=== PATIENT | female | born 1950 | race Caucasian/White ===

== ENCOUNTER 2023-12-28 16:14 | Observation (INO) ==
--- NOTE | 2023-12-28 16:26 | ED Triage Note ---
Date of Service December 28, 2023 Provider in Triage Author: Bhavesh Brown History of Present Illness This patient was briefly evaluated while in triage. An abbreviated physical exam was performed. This patient is a 73-year-old Female who presents to the ED for evaluation of right-sided abdominal pain that started around midmorning today. Patient reports nausea and vomiting. Patient denies any fevers, but does feel chilled. The patient reports that the pain is worse when she lays on her side and bends her hip. Patient is concerned that she has appendicitis. Patient has had a prior history of tummy tuck and bilateral tubal ligation. The patient currently rates her discomfort a 6 out of 10. Physical Exam CONSTITUTIONAL: Healthy and well nourished. HEENT: No scleral icterus or conjunctival injection. RESPIRATORY: Clear to auscultation bilaterally with no wheezing, crackles, rhonchi or stridor. CARDIOVASCULAR: Regular rate and rhythm with no murmurs, rubs or gallops. GASTROINTESTINAL: Bowel sounds present in all quadrants. Examination does show a positive McBurney's point tenderness, otherwise examination was limited in triage. INTEGUMENTARY: No rash or other significant dermatologic conditions noted. HEMATOLOGIC: No ecchymosis or petechiae. PSYCHIATRIC: Positive affect. NEUROLOGIC: No focal neurologic deficits noted. Initial orders for labs and / or imaging were placed and patient was placed in the waiting area until a bed is available. Please see further documentation for the full ED course.
[2023-12-28] MEDS: SODIUM CHLORIDE 0.9% 500 ML IV ONE (16:34)
[2023-12-28 17:25] LABS: Basophils # (auto) 0.05 K/uL (0.00-0.20); Basophils % (auto) 0.3 %; Hematocrit (blood only) 38.7 % (37.0-47.0); Hemoglobin 12.8 g/dl (12.0-16.0); Immature Granulocytes # (auto) 0.06 K/uL (0.01-0.20); Immature Granulocytes % (auto) 0.4 %; Lymphocytes # (auto) 1.02 K/uL (1.20-3.40); Mean Corpuscular Hemoglobin 30.6 pg (25.0-34.0); Mean Corpuscular Hgb Conc 33.1 g/dL (32.0-36.0); Mean Corpuscular Volume 92.6 fL (80.0-100.0); Monocytes # (auto) 0.97 K/uL (0.11-0.59); Monocytes % (auto) 6.7 %; Neutrophils # (auto) 12.47 K/uL (1.40-6.50); Neutrophils % (auto) 85.6 %; Platelet Count 260 K/uL (130-400); RDW Coefficient of Variation 13.7 % (11.5-14.5); RDW Standard Deviation 46.5 fL (36.4-46.3); Red Blood Count 4.18 M/uL (4.20-5.40); White Blood Count 14.57 K/ul (4.8-10.8)
[2023-12-28 17:36] LABS: Albumin Globulin Ratio 1.3 (0.9-2); Albumin Level 4.6 gm/dl (3.4-5.0); Bilirubin,Total 0.3 mg/dl (0.2-1.0); Calcium 9.9 mg/dl (8.6-10.3); Creatinine Clr Calc Pharmacy 65.6 ml/min; Est GFR (African American) 92.9 ml/min; Est GFR (Non-African American) 80.2 ml/min; Globulin 3.6 gm/dl (2.5-4.0); Potassium 3.6 mmol/L (3.5-5.1); Total Protein 8.2 gm/dl (6.0-8.3)
[2023-12-28] MEDS: OPTIRAY 320 100ml IV ONE (17:57)
--- NOTE | 2023-12-28 19:15 | CT Scan Report ---
CT abd pelvis IV con only CLINICAL HISTORY: RLQ abd pain TECHNIQUE: Helical axial images of the abdomen and pelvis were obtained and displayed. Automated dose lowering techniques and/or adjustment according to patient size were utilized for this exam. This e xam was performed with intravenous contrast. CT DOSE: 612.53 mGy.cm COMPARISON: None available at the time of this dictation. FINDINGS: Lower chest: No acute abnormality. Liver: Unremarkable. No focal lesions are seen. Gallbladder and biliary tree: No calcified gallstones. Normal caliber wall. No intra- or extrahepatic biliary ductal dilation. Pancreas: Unremarkable, no focal lesions. Spleen: Unremarkable. Adrenals: Unremarkable. Kidneys and ureters: Unremarkable. Bladder: Unremarkable. Reproductive organs: Unremarkable. Bowel: There is an appendicolith in the distal appendix is dilated measuring up to 11 mm in diameter. Faint fat stranding is seen surrounding the appendix. Diverticulosis is seen without evidence of div erticulitis. Lymph nodes Retroperitoneal: Unremarkable. Pelvic: Unremarkable. Mesenteric: Unremarkable. Peritoneum: Normal. Vessels: Atherosclerotic calcifications are seen. Abdominal wall: Unremarkable. Bones: Mild degenerative changes are seen. IMPRESSION: Findings compatible with appendicitis without evidence of perforation. ACT 112: Negative or not required by law. Electronically signed by: David Ren M.D. 12/28/2023 7:13 PM
--- NOTE | 2023-12-28 19:49 | History & Physical Report ---
Date of Service December 28, 2023 Assessment & Plan (1) Appendicitis: Plan: Due to the patient's clinical presentation, labs, and findings on imaging we will proceed as follows: N.p.o. status will be implemented Will provide IV fluid for hydration Antibiotics in the form of Zosyn has been initiated and this will continue Analgesics to be provided Antiemetics to be provided We will plan on performing appendectomy with Dr. Chambers this evening We will check a preoperative chest x-ray as well as a preoperative EKG Additional recommendations be forthcoming based on operative findings, her postoperative recovery, and her clinical course as unfolds thereafter Will use SCDs only for DVT prevention due to planned surgery She will be a level 1 full code History of Present Illness Chief Complaint: Abdominal pain Primary Care Provider: Dani Schmidt MD This is a 73-year-old female who presented to the emergency department secondary to abdominal pain that began approximate 9:00 AM this morning. She notes that the pain is located in the right lower quadrant without radiation or modifying factors. She denies any nausea or vomiting. She did report some occasional chills but has not any fevers. She has had prior abdominal surgery in the form of a tubal ligation, hysterectomy secondary to uterine fibroids, and an abdominoplasty. She notes that her most recent oral intake was at approximately 12:00 PM today when she had pizza and soda. Since arrival to the emergency department she has had labs and imaging which independent reviewed. CBC revealed white blood cell count was elevated 14.5. Hemoglobin and hematocrit as well as the platelet count were normal. Chemistry profile showed sodium and potassium as well as the BUN and creatinine were normal.A CT scan of the abdomen pelvis showed findings concerning for acute appendicitis without evidence of perforation. There is an apparent appendicolith in the distal appendix and the appendix is dilated measuring up to 11 mm. There is some fat stranding surrounding the appendix. At the time my interview she was resting comfortably in bed she was in no distress. Concerning past surgical history this is listed above Concerning past medical history she denies any prior medical problems Concerning social history she does not smoke Allergies Allergy/AdvReac Type Severity Reaction Status Date / Time meperidine [From Demerol] AdvReac Intermediate HEART Verified 12/28/23 19:13 RACED, "FELT FUNNY" Home Medications Medication Instructions Recorded Confirmed Type magnesium oxide 400 mg PO DAILY 12/28/23 12/28/23 History riboflavin (vitamin B2) 100 mg 400 mg PO DAILY 12/28/23 12/28/23 History tablet (Vitamin B-2) zinc gluconate 50 mg tablet 50 mg PO DAILY 12/28/23 12/28/23 History Past Med/Surg History Problem List (Updated 12/28/23 @ 20:16 by Ventura Briceno MD) Encounter for pre-operative examination Appendicitis Medical History (Updated 12/28/23 @ 20:16 by Ventura Briceno MD) No pertinent past medical history Surgical History (Updated 12/28/23 @ 20:16 by Ventura Briceno MD) Hx of tubal ligation Hx of abdominoplasty Hx of hysterectomy Social History Smoking Status: Unknown if ever smoked Preferred Language: Pakistani Feels Safe at Home: Yes Review of Systems Review of Systems: All systems reviewed & are unremarkable except as noted in HPI & below Physical Exam Constitutional: WD/WN, vitals as above Eyes: Wears glasses ENMT: Ears: no hearing impairment and no external ear abnormality Mouth: no oropharynx abnormality Neck: trachea midline Respiratory: normal respiratory effort; no respiratory distress and no labored breathing Cardiovascular: Rate/Rhythm: regular rate and regular rhythm Gastrointestinal (Abdomen): Abdomen is soft and nonrigid. The patient did have pain with palpation in the right lower quadrant over McBurney's point Musculoskeletal: No calf tenderness Skin: no rashes Neurologic: moves all extremities Psychiatric: A+Ox3, euthymic affect Results & Data Results & Data Vital Signs (Past 12 Hours) Vital Signs Temp Pulse Resp BP Pulse Ox O2 Del Method 12/28/23 16:23 36.9 C 94 H 19 166/95 H 96 Room Air Supervising Physician Co-Signing Physician Notes The plan is for laparoscopic appendectomy, possible open. The details of the procedure have been explained to the patient including the risks and benefits. She expressed understanding and all of her questions were answered. Cosnent was obtained. PG Care Time/CCT Total # of Minutes Spent Total Time Spent with Patient: Total time spent is greater than 50% in coordination of care (as documented) at patient's floor/unit and/or counseling patient: Coding Level of Care Code 57169 INT INP/OBS CARE 3/75MIN Diagnoses Appendicitis K37
[2023-12-28] MEDS: PIPERACILLIN/TAZOBACTAM 4.5 GM/120 ML BAG IV ONE (19:53)
[2023-12-28] MEDS ORDERED: MIDAZOLAM HCL 1 MG/ML 2ML VIAL ONE (20:04)
[2023-12-28] MEDS ORDERED: fentaNYL citrate PF 100 MCG/2 ML VIAL ONE (20:04)
[2023-12-28] MEDS: cefTRIAXone SODIUM 2,000 MG/50 ML BAG IV STA (20:09)
[2023-12-28] MEDS: metroNIDAZOLE 500 MG/100 ML BAG IV STA (20:09)
--- NOTE | 2023-12-28 20:15 | Anesthesiology Consultation ---
Date of Service December 28, 2023 Assessment & Plan (1) Encounter for pre-operative examination: Chart Review Chart Review: Acceptable Risk for Surgery History Surgery Operation Date: 12/28/23 20:30 Proposed Procedures p Laparoscopic Appendectomy, possible open appendectomy - Stephanie Álvarez DO Height/Weight Height: 5 ft 4 in Weight: 68.9 kg Allergies Allergy/AdvReac Type Severity Reaction Status Date / Time meperidine [From Demerol] AdvReac Intermediate HEART Verified 12/28/23 19:13 RACED, "FELT FUNNY" Medications Home Medications Medication Instructions Recorded Confirmed Last Taken magnesium oxide 400 mg PO DAILY 12/28/23 12/28/23 12/28/23 riboflavin (vitamin B2) 100 mg 400 mg PO DAILY 12/28/23 12/28/23 12/28/23 tablet (Vitamin B-2) zinc gluconate 50 mg tablet 50 mg PO DAILY 12/28/23 12/28/23 12/28/23 Past Medical History Medical History (Updated 12/28/23 @ 20:16 by Ventura Briceno MD) No pertinent past medical history Past Surgical History Surgical History (Updated 12/28/23 @ 20:16 by Ventura Briceno MD) Hx of tubal ligation Hx of abdominoplasty Hx of hysterectomy Social History Smoking Status: Unknown if ever smoked Physical Exam Vital Signs Last Vital Signs Temp 37.2 C 12/28/23 20:03 Pulse 88 12/28/23 20:03 Resp 16 12/28/23 20:03 BP 138/84 12/28/23 20:03 Pulse Ox 96 12/28/23 20:03 O2 Del Method Room Air 12/28/23 20:03 Testing Laboratory Results 12/28/23 16:37 12/28/23 16:37 Electrocardiogram Date: 12/28/23 Findings: + NSR @ (88)
[2023-12-28] MEDS ORDERED: KETOROLAC 30 MG/ML VIAL IV PRN (21:06)
[2023-12-28] MEDS ORDERED: ONDANSETRON INJ 2 MG/ML 2 ML VIAL IV PRN ×2 (21:06→22:39)
[2023-12-28] MEDS ORDERED: DROPERIDOL 5 MG/2 ML VIAL IV PRN (21:06)
[2023-12-28] MEDS ORDERED: ATROPINE SULFATE 0.1 MG/ML 10ML SYR IV PRN (21:06)
[2023-12-28] MEDS ORDERED: fentaNYL citrate PF 100 MCG/2 ML VIAL IV PRN (21:06)
[2023-12-28] MEDS: BUPIVACAINE/EPINEPHRINE 0.5% MPF 1:200,000 30 ML VIAL ONE (21:22)
[2023-12-28 21:34] LABS: Appearance Urine Cloudy (Clear); Bacteria Urine Automated None Seen (None Seen); Bilirubin Urine Negative (Negative); Blood Urine Trace (Negative); Cast Urine Automated 0-2 /lpf (0-2); Color Urine Yellow; Epithelial Cell Urine Auto 0-2 /hpf (0-2); Glucose Urine UA Negative (Negative); Ketones Urine Negative (Negative); Leukocyte Esterase Urine Negative (Negative); Nitrite Urine Negative (Negative); Protein Urine Negative (Negative); Specific Gravity Urine > 1.045 (1.000-1.030); Urobilinogen Urine Negative (Negative); WBC Urine Automated 0-5 /hpf (0-5)
[2023-12-28] MEDS ORDERED: NEOSTIGMINE METHYLSULFATE 1 MG/ML 10ML VIAL ONE (21:45)
[2023-12-28] MEDS ORDERED: DEXAMETHASONE SOD INJ 4 MG/ML VIAL ONE (21:45)
[2023-12-28] MEDS ORDERED: ROCURONIUM BROMIDE 10 MG/ML 5 ML VIAL IV ONE (21:45)
[2023-12-28] MEDS ORDERED: ONDANSETRON INJ 2 MG/ML 2 ML VIAL ONE (21:45)
[2023-12-28] MEDS ORDERED: LIDOCAINE 2% 2 ML VIAL/AMP(20MG/ML) INFIL ONE (21:45)
[2023-12-28] MEDS ORDERED: PROPOFOL IV EMULSION 10 MG/ML 20 ML VIAL IV ONE (21:45)
[2023-12-28] MEDS ORDERED: GLYCOPYRROLATE 0.2 MG/ML VIAL ONE (21:45)
--- NOTE | 2023-12-28 22:00 | Emergency Department Note ---
History of Present Illness General Chief Complaint: Flu Like Symptoms Stated Complaint: ABD PAIN, NAUSEA, VOMITING, CHILLS, POOR APPETITE Time Seen by Provider: 12/28/23 18:47 History of Present Illness Provider Complaint: abdominal pain Onset (ago): 1 day(s) Pain Consistency: constant Location: RLQ Migration to: no migration Severity: moderate Maximum Pain Intensity: 6 Current Pain Intensity: 6 Quality: + stabbing and + sharp Relieved By: + nothing Exacerbated By: + nothing Context: no foreign travel, no possible food poisoning, no sick contacts, no recent antibiotic use, no recent surgery/procedure or no recent injury Associated Symptoms: + nausea and + vomiting; no diarrhea, no fever, no chills, no constipation, no dysuria, no hematemesis, no hematochezia, no melena, no hematuria, no headache, no back pain, no chest pain and no breathing difficulty Home Medications Medication Instructions Recorded Confirmed Type magnesium oxide 400 mg PO DAILY 12/28/23 12/28/23 History riboflavin (vitamin B2) 100 mg 400 mg PO DAILY 12/28/23 12/28/23 History tablet (Vitamin B-2) zinc gluconate 50 mg tablet 50 mg PO DAILY 12/28/23 12/28/23 History Allergies Allergy/AdvReac Type Severity Reaction Status Date / Time meperidine [From Demerol] AdvReac Intermediate HEART Verified 12/28/23 19:13 RACED, "FELT FUNNY" Past Med/Surg History Problem List (Updated 12/28/23 @ 22:00 by Tyson Chavez MD) Encounter for pre-operative examination Appendicitis (Acute) Medical History No pertinent past medical history Surgical History Hx of tubal ligation Hx of abdominoplasty Hx of hysterectomy Social History Smoking Status: Unknown if ever smoked Preferred Language: Tajik Feels Safe at Home: Yes Physical Exam 2 Vital Signs: Vital Signs - 24 hr 12/28/23 16:23 12/28/23 19:50 12/28/23 20:03 Temperature 36.9 C 37.2 C Temperature Source Temporal Artery Sc an Oral Pulse Rate 94 H 90 Pulse Rate [Apical ] 88 Pulse Rhythm [Apic al] Regular Pulse Strength [Ap ical] Respiratory Rate 19 16 Respiratory Effort / Characteristics Non-Labored Sponta neous Respiratory Depth Normal Normal Respiratory Patter n Regular Blood Pressure 166/95 H Blood Pressure [Le ft Arm] 138/84 Blood Pressure Karen n 118 Blood Pressure Karen n [Left Arm] 102 Blood Pressure Pos ition [Left Arm] Pulse Oximetry 96 96 Oxygen Delivery Me thod Room Air Room Air Sepsis Recent Feve r Within 48 Hours No Sepsis New/Unexpla ined Change in Men earl Status N/A Sepsis Action Take n by Nursing No Action Required 12/28/23 21:40 12/28/23 21:50 Temperature 36.2 C L Temperature Source Temporal Artery Sc an Pulse Rate Pulse Rate [Apical ] 98 H 95 H Pulse Rhythm [Apic al] Regular Regular Pulse Strength [Ap ical] Normal Normal Respiratory Rate 16 16 Respiratory Effort / Characteristics Non-Labored Sponta neous Non-Labored Sponta neous Respiratory Depth Normal Normal Respiratory Patter n Regular Regular Blood Pressure Blood Pressure [Le ft Arm] 135/78 139/79 Blood Pressure Karen n Blood Pressure Karen n [Left Arm] 97 99 Blood Pressure Pos ition [Left Arm] Lying Lying Pulse Oximetry 99 98 Oxygen Delivery Me thod Room Air Room Air Sepsis Recent Feve r Within 48 Hours Sepsis New/Unexpla ined Change in Men earl Status Sepsis Action Take n by Nursing Physical Exam: Physical Exam GENERAL: She is oriented to person, place, and time. She appears well-developed and well-nourished. She does not appear distressed. HENT: Exam performed. -Head: Normocephalic and atraumatic. -Right Ear: External ear normal. No mastoid erythema -Left Ear: External ear normal. No mastoid erythema -Mouth/Throat: The oropharynx is clear and moist. No trismus in the jaw. No dental abscesses or uvula swelling. No oropharyngeal exudate or tonsillar abscesses. EYES: Conjunctivae and EOM are normal.Right eye exhibits no discharge. Left eye exhibits no discharge. No scleral icterus. NECK: Normal range of motion. Neck supple. No JVD present. No tracheal deviation and normal range of motion present. CV: Normal rate, regular rhythm, normal heart sounds and intact distal pulses. There is no peripheral edema. Palpable radial pulses bue. PULM/CHEST: Effort normal and breath sounds normal. No respiratory distress. No stridor. She has no wheezes. She has no rales. -Chest Wall: She exhibits no tenderness. ABD: The abdomen is soft. Bowel sounds are normal. She has no distension. No mass is present. There is tenderness to palpation of the right lower quadrant. There is rebound tenderness, no guarding, no Wills's sign. Rovsig negative MUSC/SKEL: Normal range of motion. There is no peripheral edema, tenderness or deformity. NEURO: Motor and sensation grossly intact. SKIN: Skin is warm and dry. She is not diaphoretic. PSYCH: She has a normal mood and affect. Behavior is normal. Judgment and thought content normal. Course Course 1846: The patient was evaluated in room C4. A complete history and physical exam was performed Cardiac monitoring: An order was placed for continuous cardiac monitoring. The monitor shows a rate of 90 with sinus rhythm interpreted by me.. 193: Vital signs stable. Labs show leukocytosis of 14 CT shows acute appendicitis. Discussed case with general surgery and they asked that the patient be switched to Zosyn from Rocephin and Flagyl that was ordered by me. Patient be admitted to their service. Administered Medications Discontinued Medications Bupivacaine HCl/Epinephrine Bitart (Bupivacaine/Epinephrine 0.5% Mpf 1:200,000 30 Ml Vial) Confirm Administered Dose 30 ml .ROUTE .STK-MED ONE Stop: 12/28/23 19:45 Last Admin: 12/28/23 21:22 Dose: 30 ml Documented By: [id number] Sodium Chloride (Nss) 500 mls @ 999 mls/hr IV .Q31M ONE Stop: 12/28/23 16:56 Last Infusion: 12/28/23 19:44 Dose: Infused Documented By: Admin: 12/28/23 16:34 Dose: 999 mls/hr Documented By: LITA Ceftriaxone Sodium (Rocephin) 2,000 mg in 50 mls @ 100 mls/hr IV NOW STA Stop: 12/28/23 19:55 Last Admin: 12/28/23 20:09 Dose: Not Given Documented By: QUINTEN Metronidazole (Flagyl) 500 mg in 100 mls @ 100 mls/hr IV NOW STA Stop: 12/28/23 20:25 Last Admin: 12/28/23 20:09 Dose: Not Given Documented By: QUINTEN Piperacillin Sod/Tazobactam Sod (Zosyn) 4.5 gm in 120 mls @ 240 mls/hr IV NOW ONE Stop: 12/28/23 20:04 Last Admin: 12/28/23 19:53 Dose: 240 mls/hr Documented By: QUINTEN Ioversol (Optiray 320 100ml) 93 ml IV ONCE ONE Stop: 12/28/23 17:58 Last Admin: 12/28/23 17:57 Dose: 93 ml Documented By: PRESTON Medical Decision Making Laboratory Data Attestation: I reviewed the patient's lab results. 12/28/23 16:37 12/28/23 16:37 Lab Results 12/28/23 12/28/23 Range/Units 16:37 18:41 WBC 14.57 H (4.8-10.8) K/ul RBC 4.18 L (4.20-5.40) M/uL Hgb 12.8 (12.0-16.0) g/dl Hct 38.7 (37.0-47.0) % MCV 92.6 (80.0-100.0) fL MCH 30.6 (25.0-34.0) pg MCHC 33.1 (32.0-36.0) g/dL RDW Std Deviation 46.5 H (36.4-46.3) fL RDW Coeff of Rosie 13.7 (11.5-14.5) % Plt Count 260 (130-400) K/uL MPV 10.0 (9.4-12.4) fL Immature Gran % (Auto) 0.4 % Neut % (Auto) 85.6 % Lymph % (Auto) 7.0 % [place] % (Auto) 6.7 % Eos % (Auto) 0.0 % Baso % (Auto) 0.3 % Neut # (Auto) 12.47 H (1.40-6.50) K/uL Lymph # (Auto) 1.02 L (1.20-3.40) K/uL [place] # (Auto) 0.97 H (0.11-0.59) K/uL Eos # (Auto) 0.00 (0.00-0.50) K/uL Baso # (Auto) 0.05 (0.00-0.20) K/uL Immature Gran # (Auto) 0.06 (0.01-0.20) K/uL Sodium 138 (136-145) mmol/L Potassium 3.6 (3.5-5.1) mmol/L Chloride 103 (98-107) mmol/L Carbon Dioxide 29 (21-32) mmol/L Anion Gap 6 (3-11) BUN 15 (6-23) mg/dl Creatinine 0.75 (0.6-1.2) mg/dl Est Cr Clr Drug Dosing 65.6 ml/min Est GFR ( Amer) 92.9 ml/min Est GFR (Non-Af Amer) 80.2 ml/min BUN/Creatinine Ratio 20.0 (10-20) Glucose 112 H (70-99(Fasting)) mg/dl Calcium 9.9 (8.6-10.3) mg/dl Total Bilirubin 0.3 (0.2-1.0) mg/dl AST 19 (13-39) U/L ALT 14 (7-52) U/L Alkaline Phosphatase 63 (34-104) U/L Total Protein 8.2 (6.0-8.3) gm/dl Albumin 4.6 (3.4-5.0) gm/dl Globulin 3.6 (2.5-4.0) gm/dl Albumin/Globulin Ratio 1.3 (0.9-2) Lipase 4 L (11-82) U/L Urine Color Yellow Urine Appearance Cloudy A (Clear) Urine pH 8.0 H (4.5-7.5) Ur Specific [place] > 1.045 H (1.000-1.030) Urine Protein Negative (Negative) Urine Glucose (UA) Negative (Negative) Urine Ketones Negative (Negative) Urine Blood Trace H (Negative) Urine Nitrite Negative (Negative) Urine Bilirubin Negative (Negative) Urine Urobilinogen Negative (Negative) Ur Leukocyte Esterase Negative (Negative) Urine WBC (Auto) 0-5 (0-5) /hpf Urine RBC (Auto) 3-5 H (0-2) /hpf U Hyaline Cast (Auto) 0-2 (0-2) /lpf U Epithel Cells (Auto) 0-2 (0-2) /hpf Urine Bacteria (Auto) None Seen (None Seen) Imaging Data Radiologist's Impression: Abdomen/Pelvis CT 12/28/23 16:27 CT abd pelvis IV con only CLINICAL HISTORY: RLQ abd pain TECHNIQUE: Helical axial images of the abdomen and pelvis were obtained and displayed. Automated dose lowering techniques and/or adjustment according to patient size were utilized for this exam. This exam was performed with intravenous contrast. CT DOSE: 612.53 mGy.cm COMPARISON: None available at the time of this dictation. FINDINGS: Lower chest: No acute abnormality. Liver: Unremarkable. No focal lesions are seen. Gallbladder and biliary tree: No calcified gallstones. Normal caliber wall. No intra- or extrahepatic biliary ductal dilation. Pancreas: Unremarkable, no focal lesions. Spleen: Unremarkable. Adrenals: Unremarkable. Kidneys and ureters: Unremarkable. Bladder: Unremarkable. Reproductive organs: Unremarkable. Bowel: There is an appendicolith in the distal appendix is dilated measuring up to 11 mm in diameter. Faint fat stranding is seen surrounding the appendix. Diverticulosis is seen without evidence of diverticulitis. Lymph nodes Retroperitoneal: Unremarkable. Pelvic: Unremarkable. Mesenteric: Unremarkable. Peritoneum: Normal. Vessels: Atherosclerotic calcifications are seen. Abdominal wall: Unremarkable. Bones: Mild degenerative changes are seen. IMPRESSION: Findings compatible with appendicitis without evidence of perforation. ACT 112: Negative or not required by law. Electronically signed by: David Ren M.D. 12/28/2023 7:13 PM [facility] Narrative 1847: The patient was evaluated in room C4. A complete history and physical exam was performed Cardiac monitoring: An order was placed for continuous cardiac monitoring. The monitor shows a rate of 90 with sinus rhythm interpreted by me.. 1935: Vital signs stable. Labs show leukocytosis of 14 CT shows acute appendicitis. Discussed case with general surgery and they asked that the patient be switched to Zosyn from Rocephin and Flagyl that was ordered by me. Patient be admitted to their service. Impression & Plan Appendicitis Discharge Plan Visit Data Chief Complaint: Flu Like Symptoms Stated Complaint: ABD PAIN, NAUSEA, VOMITING, CHILLS, POOR APPETITE ED Provider: Tyson Chavez Discharge Problem: Appendicitis Patient Disposition: Admitted As Inpatient Discharge Instructions Interventions: ED Discharge Assessment Last Done: 12/28/23 20:05 Discharge Problem: Appendicitis Qualifiers: Appendicitis type: acute appendicitis Acute appendicitis type: unspecified acute appendicitis type Qualified Code(s): K35.80 - Unspecified acute appendicitis
--- NOTE | 2023-12-28 22:01 | Operative Report ---
PG Post Operative Report Pre & Post Diagnosis Operation Date: 12/28/23 20:30 Pre-Op Diagnosis: Appendicitis. Post-Op Diagnosis: Appendicitis. I identified the patient and participated in the time-out.: Yes Procedure Operation Date: 12/28/23 20:30 Actual Procedures p Laparoscopic Appendectomy - Stephanie Cummins DO Surgeon Stephanie Cummins DO Char Filter Operator Helper ROBSON Fallon Estimated Blood Loss 1 Findings See Below Acute appendicitis, without perforation Specimens Appendix Drains None Anesthesia Type General Complications None Indications Patient presented with physical exam and CT evidence for acute appendicitis containing an appendicolith The details of the procedure were explained to the patient, all of her questions were answered and consent was obtained Description of Procedure The patient was brought back to the operating room placed on the operating room table in supine position. Cardiac and oxygen monitoring was initiated and supplemental O2 was provided. SCDs were applied to bilateral lower extremities and the patient was administered general anesthesia. The abdomen was prepped and draped in typical sterile fashion a timeout was conducted. Local anesthetic was used to anesthetize the skin and subcutaneous tissue at the umbilicus and a small stab incision was made with an 11 blade. The intra-abdominal space was accessed using a Veress needle confirmed by saline drop test. CO2 insufflation was initiated to a goal pressure of 50 mmHg. Once this pressure was achieved, a 5 mm trocar was inserted under direct visualization using an Optiview port with a 5 mm laparoscope. Using the same method, an 11 mm trocar was inserted at the left lower quadrant and a second 5 mm trocar was inserted the midline suprapubic region. The operating table was positioned in left side down and Trendelenburg. The acutely inflamed appendix was identified at the right lower quadrant containing a small amount of fibrinous exudate. The appendix was dissected free from the surrounding peritoneum. A window was made between the mesoappendix and the base of the appendix off the cecum. The appendix was ligated and transected using a 45 mm purple Endo MAZIN stapler. The mesoappendix was ligated and transected using the sonicision. The appendix was placed in an Endo Catch bag and removed from the abdomen. The appendix was placed in a labeled container that was sent to pathology for further analysis. The intra-abdominal space was reassessed. There was no bleeding at the staple line or the sonicision site. Loose staple clips were removed from the area. A small amount of gentle irrigation was used and the irrigant was suctioned away. The omentum was placed over the area, the operating table was returned to the neutral position. Insufflation was discontinued and pneumoperitoneum was evacuated as all instruments were removed. The trocars were removed. The fascia at the left lower quadrant 11 mm port site was closed using 0 Vicryl suture. Additional local anesthetic was injected at all incision sites. The deep dermis was approximated using 4-0 Vicryl suture. Dermabond was used to seal the incisions. The patient tolerated the procedure well. She was awakened from anesthesia, a secure airway was removed and she was transferred to recovery in stable condition I attest to the content of the Intraoperative Record and any orders documented therein. Any exceptions are noted below.
--- NOTE | 2023-12-28 22:11 | Anesthesiology Progress Note ---
Date of Service December 28, 2023 Anesthesia Post Procedure Vital Signs Vital Signs: Temp Pulse Pulse Resp BP BP Pulse Ox 12/28/23 22:00 93 H 16 152/80 H 97 12/28/23 21:50 95 H 16 139/79 98 12/28/23 21:40 36.2 C L 98 H 16 135/78 99 12/28/23 20:03 37.2 C 88 16 138/84 96 12/28/23 19:50 90 12/28/23 16:23 36.9 C 94 H 19 166/95 H 96 O2 Del Method 12/28/23 22:00 Room Air 12/28/23 21:50 Room Air 12/28/23 21:40 Room Air 12/28/23 20:03 Room Air 12/28/23 19:50 12/28/23 16:23 Room Air Pain Intensity Abdomen: Pain Intensity: 4 Transfer of Care Handoff Completed per policy Notes Mental Status: alert / awake / arousable Patient Amnestic to Procedure: Yes Nausea / Vomiting: adequately controlled Pain: adequately controlled Airway Patency, RR, SpO2: stable & adequate BP & HR: stable & adequate Hydration State: stable & adequate Anesthetic Complications: no major complications apparent
[2023-12-28] MEDS ORDERED: MoRPHine SULFATE 4 MG/ML 1 ML CARP\\VIAL IV PRN (22:39)
[2023-12-28] MEDS ORDERED: ACETAMINOPHEN 1,000 MG/100 ML VIAL IV PRN (22:39)
[2023-12-28] MEDS: SODIUM CHLORIDE 0.9% 1,000 ML IV SCH (23:34)
[2023-12-29] MEDS: PIPERACILLIN/TAZOBACTAM 4.5 GM in DEXTROSE 5% MINI-B 100 ML IV SCH (03:02)
[2023-12-29 06:46] LABS: Hematocrit (blood only) 33.8 % (37.0-47.0); Hemoglobin 11.3 g/dl (12.0-16.0); Mean Corpuscular Hemoglobin 30.7 pg (25.0-34.0); Mean Corpuscular Hgb Conc 33.4 g/dL (32.0-36.0); Mean Corpuscular Volume 91.8 fL (80.0-100.0); Platelet Count 218 K/uL (130-400); RDW Coefficient of Variation 13.7 % (11.5-14.5); RDW Standard Deviation 46.9 fL (36.4-46.3); Red Blood Count 3.68 M/uL (4.20-5.40); White Blood Count 14.93 K/ul (4.8-10.8)
[2023-12-29 06:49] LABS: BUN Creatinine Ratio 15.8 (10-20); Calcium 8.8 mg/dl (8.6-10.3); Creatinine Clr Calc Pharmacy 64.7 ml/min; Est GFR (African American) 91.5 ml/min; Est GFR (Non-African American) 78.9 ml/min; Potassium 4.2 mmol/L (3.5-5.1)
[2023-12-29 07:12] LABS: Basophils # (auto) 0.01 K/uL (0.00-0.20); Basophils % (auto) 0.1 %; Immature Granulocytes % (auto) 0.7 %; Lymphocytes # (auto) 0.54 K/uL (1.20-3.40); Lymphocytes % (auto) 3.6 %; Monocytes # (auto) 0.51 K/uL (0.11-0.59); Monocytes % (auto) 3.4 %; Neutrophils # (auto) 13.77 K/uL (1.40-6.50); Neutrophils % (auto) 92.2 %; RBC Morphology Unremarkable
[2023-12-29] MEDS ORDERED: oxyCODONE HCL IR 5 MG TAB (IMMEDIATE RELEASE) PO PRN (07:19)
--- OUTSIDE RECORDS SUMMARY | 2023-12-29 07:19 | External Medical Summary | Summary of Care ---
Author Name Unknown Organization [facility] Address [address] [place] [address] Phone [phone] Care Team Providers Care Worm Sorter Name Role Phone Roxana ELMORE MD, John E Primary Care Provider [phone] Reason for Visit * Reason Onset Date Comments Advice 08/12/2023 Order Request 08/12/2023 Encounter Details Date Type Department Care Team (Late st Contact Info) Description 08/12/2023 Telephone Family Practice [facility] [address] [facility] [place] [address] Dani Schmidt III, MD [address] [place] [address] Advice; Order Request Allergies Active Allergy Reactions Criticality Noted Date Comments Meperidine And Related 07/16/2000 Very fast heart beat documented as of this encounter (statuses as of 11/11/2023) Medications Medication Sig Dispensed Refills Start Date End Date Status ALEVE 220 MG PO CAPS 1 tab every 12 hours as needed 0 Active acetaminophen (TYLENOL EXTRA STRENGTH) 500 MG Tablet Take 1 Tablet by mouth every 6 hours as needed for Pain. 0 Active zoster vac recomb adjuvanted (SHINGRIX) 50 MCG/0.5ML injectionIndications:Enc ounter for Zostavax administration Inject 0.5 mL into a large muscle now and repeat dose in 60 to 180 days 1 Each 1 11/23/2018 Active Magnesium 400 MG Capsule Take 1 Capsule by mouth in the morning. 0 Active Riboflavin (VITAMIN B-2) 50 MG TABS Take by mouth. 0 Active Vitamin D3 1.25 MG (84437 UT) Oral Capsule Take 1 Capsule by mouth in the morning. 0 Active documented as of this encounter (statuses as of 11/11/2023) Active Problems Problem Noted Date Diagnosed Date Worsening headaches 08/26/2023 HX-SKIN MALIGNANCY NEC - BCC inframammary 08/1009 05/30/2010 ADVANCE DIRECTIVE INFORMATION 10/07/2006 Overview: No, Advance Directive brochure given to patient at prior appointment. documented as of this encounter (statuses as of 11/11/2023) Resolved Problems Problem Noted Date Diagnosed Date Resolved Date Localized adiposity 10/29/2009 07/20/19 Adjustment disorder with depressed mood 01/20/2008 2018 Benign neoplasm of colon 12/13/2007 Overview: adenomatous/repeat colonoscopy in 5 yrs documented as of this encounter (statuses as of 11/11/2023) Immunizations Name Administration Dates Next Due H1N1 2009 Influenza, IM 06/12/2009 Pneumococcal Conjugate Vacc, 13 Valent (Prevnar) 11/23/2018 Seasonal Influenza, PF, 6 M & above, IM , (FluLaval or Fluzone) 03/24/2019,05/04/2018,08/06/2017 Seasonal Influenza, Quadriva lent, No Preserve, IM 05/15/2016 Seasonal Influenza, Split, I IV3, With Preserve, Inj 05/04/2011,06/12/2009 TDAP (age 10 and older)(Boostrix) 08/06/2017 documented as of this encounter Social History Tobacco Use Types Packs/Day Years Used Date Smoking Tobacco: Never Smokeless Tobacco: Never Alcohol Use Standard Drinks/Week Comments No 0 (1 standard drink = 0.6 oz pur e alcohol) PHQ-2 Answer Date Recorded PHQ Adult Total Score 0 08/25/2023 Hunger Vital Sign Answer Date Recorded Within the past 12 months, y ou worried that your food would run out before you got the money to buy more. Never true 08/25/19 24 Within the past 12 months, t he food you bought just didn't last and you didn't have money to get more. Never true 08/25/2023 Sex and Gender Information Value Date Recorded Sex Assigned at Female 11/23/2018 2:05 PM EDT Gender Identity Not on file Sexual Orientation Not on file Job Start Date Occupation Industry Not on file Not on file Not on file documented as of this encounter Miscellaneous Notes * Telephone Encounter - Jil Saldivar LPN - 08/12/2023 3:18 PM EST Called. Placed with [place] Juarez on 08/25/23 @ 10 a.m. * Telephone Encounter - Ying Minor LPN - 08/12/2023 2:28 PM EST This patient hasn't been seen since September 2021. She needs a CPE with pcp. Please schedule that as well. * Telephone Encounter - Mario Waldron DO - 08/12/2023 2:19 PM EST Please call to schedule mammo * Telephone Encounter - Juany Watkins OSA - 08/12/2023 2:05 PM EST Pt scheduled appointment for mammogram. Please place an order for Mammogram Screening JACKLYN Bilateral. Thank you, DEVYN Holm * Telephone Encounter - Brenda Reyes OSA - 08/12/2023 1:56 PM EST Patient called in to inform Dr. Schmidt she needs an order send over to schedule an appointment for amammogram. Please contact patient at [phone] when order is ready. documented in this encounter Plan of Treatment Upcoming Encounters Date Type Department Care Team (Latest Contact Info) Description 11/25/2023 10:40 AM EDT Office Visit Neurology [facility] [employer] [facility] [address] [place] [address] Radha Mcneil MD [address] [place] [address] 03/01/2024 1:00 PM EDT Hospital Encounter [facility], Endoscopy Room [facility] [address] [place] [phone] Jeremy Haney MD [address] [place] [address] 03/01/2024 1:00 PM EDT - 03/01/2024 1:30 PM EDT Surgery [facility], Endoscopy Room [facility] [address] [place] [phone] Jeremy Haney MD [address] [place] [address] COLONOSCOPY FLEXIBLE PROXIMAL DIAGNOSTIC Scheduled Procedures Name Priority Associated Diagnoses Date/Ti me COLONOSCOPY FLEXIBLE PROXIMAL DIAGNOSTIC History of colon polyps 03/01/2024 1:00 PM EDT Health Maintenance Due Date Last Done Comments Hepatitis C Screening 1970 Cologuard 1997 Sigmoidoscopy 1997 Zoster Vaccines (1 of 2) 2002 Fecal Occult Blood Test 01/26/2004 01/25/2003 COVID-19 Vaccine ( season) 2023 Colonoscopy 04/28/2023 04/28/2018, 04/11, 01/30/2013, Additional history exists Colorectal Cancer Screening 04/28/2023 Influenza Vaccine (FLU shot) (Season Ended) 2024 03/24/2019, 05/04/2018, 08/06/2017, Additional history exists DXA Scan 08/11/2024 08/11/2017, 12/12/2007 Depression Screening 08/25/2024 08/25/2023 Mammogram 09/29/2024 09/30/2023, 09/10, 09/25/2021, Additional history exists DTaP,Tdap,and Td Vaccines (2 - Td or Tdap) 08/06/2027 08/06/2017, 12/07/2001, 08/19/1981 Lipid Panel 08/25/2028 08/25/2023, 03/2019, 12/09/2005, Additional history exists RETIRED - COLONOSCOPY-EVERY 5 YRS AGES 18-100 Discontinued 04/28/2018, 04/28/2018, 01/30/2013, Additional history exists Pneumococcal Vaccine: 65+ Years Completed 08/25/2023, 11/23/2018 GARDASIL-HPV IMMUNIZATION SERIES Aged Out No longer eligible based on patient's age to complete this topic Hepatitis B Aged Out No longer eligi ble based on patient's age to complete this topic MENINGOCOCCAL (MENACTRA/MENVEO) Aged Out No longer eligible based on patient's age to complete this topic documented as of this encounter Medical Devices Not on filedocumented as of this encounter Results * MAMMOGRAM SCREENING JACKLYN BILATERAL (09/30/2023 9:51 AM EDT) Anatomical Region Laterality Modality Breast Bilateral Mammography Narrative 10/01/2023 7:16 PM EDT Result MAMMOGRAM SCREENING JACKLYN BILATERAL History Encounter for screening mammogram for breast cancer Family medical history includes colon cancer in grandfather (maternal) (comments: dx elderly). Films Compared 09/28/2022 MAMMOGRAM SCREENING JACKLYN BILATERAL, 09/25/2021 MAMMOGRAM SCREENING JACKLYN BILATERAL, and 05/19/2018 MAMMOGRAM SCREENING JACKLYN BILATERAL Bilateral mammogram 05/14/2017 and left mammogram 10/18/2012. Findings The breasts are heterogeneously dense, which may obscure small masses. Tissue marker indicative of prior image guided biopsy with benign histology in the right breast is unchanged. No new dominant mass or clustered microcalcifications suspicious for malignancy are identified. Impression Bilateral No mammographic evidence of malignancy. BI-RADS Category: 2 - Benign. Recommendation Screening mammogram in 1 year is recommended for both breasts. Digital breast tomosynthesis was performed. This digital mammogram has been analyzed with the computer aided detection system. This notice contains the results of your recent mammogram, including information about breast density. If your mammogram shows that your breast tissue is dense, you should know that dense breast tissue is a common finding and is not abnormal. Statistics show many women could have dense or highly dense breasts. Dense breast tissue can make it harder to find cancer on a mammogram and may be associated with an increased risk of cancer. This information about the result of your mammogram is given to you to raise your awareness and to inform your conversations with your physician. Together, you can decide which screening options are right for you, based on your mammogram results, individual risk factors or physical examination. A report of your results was sent to your physician. Your mammographic breast density on today's study is described above. There are four categories of breast density on mammography. Fatty breasts and those with scattered fibroglandular tissue are not considered dense. Heterogeneously dense or extremely dense tissue is considered "dense". Please understand that assessment of breast density may vary from year to year. This examination was performed at [facility], [address] [place] [id number]. Mario Waldron DO RAD MAMMOGRAPHY documented in this encounter Visit Diagnoses Diagnosis Encounter for screening mammogram for breast cancer- Primary Encounter for screening mammogram for breast cancer History of colon polyps Personal history of colonic polyps documented in this encounter Care Teams Worm Sorter Relationship Specialty Start Date End Date Dani Schmidt III, MD [address] [place] [address] PCP - General Family Medicine 10/26/16 documented as of this encounter
--- OUTSIDE RECORDS SUMMARY | 2023-12-29 07:19 | External Medical Summary | Summary of Care ---
Author Name Unknown Organization [facility] Address [address] [place] [address] Phone [phone] Care Team Providers Care Band Edger Name Role Phone Roxana ELMORE MD, Dani Kramer Primary Care Provider [phone] Reason for Visit * Reason Onset Date Comments Medication Refill 11/15/2023 Encounter Details Date Type Department Care Team (Late st Contact Info) Description 11/15/2023 Refill Neurology [facility] [address] [facility] [place] [address] Ye Pack MD [address] [facility] [place] [address] Allergies Active Allergy Reactions Criticality Noted Date Comments Meperidine And Related 07/16/2000 Very fast heart beat documented as of this encounter (statuses as of 11/16/2023) Medications Medication Sig Dispensed Refills Start Date End Date Status ALEVE 220 MG PO CAPS 1 tab every 12 hours as needed 0 Active acetaminophen (TYLENOL EXTRA STRENGTH) 500 MG Tablet Take 1 Tablet by mouth every 6 hours as needed for Pain. 0 Active zoster vac recomb adjuvanted (SHINGRIX) 50 MCG/0.5ML injectionIndication s:Encounter for Zostavax administration Inject 0.5 mL into a large muscle now and repeat dose in 60 to 180 days 1 Each 1 9 Active Magnesium 400 MG Capsule Take 1 Capsule by mouth in the morning. 0 Active Riboflavin (VITAMIN B-2) 50 MG TABS Take by mouth. 0 Activ e Vitamin D3 1.25 MG (08477 UT) Oral Capsule Take 1 Capsule by mouth in the morning. 0 Active Zinc 20 MG Oral Capsule Take by mouth. 0 Active lamoTRIgine 100 MG Oral Tablet (LaMICtal) Take 1 Tablet by mouth in the morning and 1 Tablet before bedtime. 180 Tablet 3 4 Active lamoTRIgine 25 MG Oral Tablet (LaMICtal) Lamotrigine (Lamictal) 25 mg tablets. Take this medicatio as instructed below: -Weeks 1: take 25 mg (1 tab) in the morning and 25 mg (1 tab) at bedtime -Week 2: take 50mg in the morning and 25 mg at bedtime -Week 3 : take 50mg in the morning and 50 mg at bedtime -Week 4: take 75 mg in the morning and 50 mg at bedtime -Week 5: take 75 mg in the morning and 75 mg at bedtime -Week 6: take 100 mg in the morning and 75 mg at bedtime -Week 7: Take 100 mg in the morning and 100 mg. At bedtime 245 tablets of 25 mg Please pay special attention for any rash, which can be a sign of a potentially serious side effect. If this occurs please stop the medication and call your doctor. 245 Tablet 1 4 11/16/19 24 Discontinued lamoTRIgine 25 MG Oral Tablet (LaMICtal) Lamotrigine (Lamictal) 25 mg tablets.[place] e this medicatio as instructed below: 1 tab by mouth twice a day for 1 week Then 2 tabs by mouth for 1 week Then 3 tabs by mouth twice a day for 1 week Then 4 tabs by mouth twice a day and continue Please pay special attention for any rash, which can be a sign of a potentially serious side effect. If this occurs please stop the medication and call your doctor. 140 Tablet 1 4 11/16/19 24 Discontinued documented as of this encounter (statuses as of 11/16/2023) Active Problems Problem Noted Date Diagnosed Date Worsening headaches 08/26/2023 HX-SKIN MALIGNANCY NEC - BCC inframammary 08/1009 05/30/2010 ADVANCE DIRECTIVE INFORMATION 10/07/2006 Overview: No, Advance Directive brochure given to patient at prior appointment. documented as of this encounter (statuses as of 11/16/2023) Resolved Problems Problem Noted Date Diagnosed Date Resolved Date Localized adiposity 10/29/2009 07/20/19 19 Adjustment disorder with depressed mood 01/20/2008 2018 Benign neoplasm of colon 12/13/2007 Overview: adenomatous/repeat colonoscopy in 5 yrs documented as of this encounter (statuses as of 11/16/2023) Immunizations Name Administration Dates Next Due H1N1 2009 Influenza, IM 06/12/2009 Pneumococcal Conjugate Vacc, 13 Valent (Prevnar) 11/23/2018 Pneumococcal Polysaccharide PPV23 (Pneumovax) 08/25/2023 Seasonal Influenza, PF, 6 M & above, [...] money to get more. Never true 08/25/2023 Education Answer Date Recorded What is the highest level of school you have completed or the highest degree you have received? Associate degree: academic program 08/26/2023 Sex and Gender Information Value Date Recorded Sex Assigned at Female 11/23/2018 2:05 PM EDT Gender Identity Not on file Sexual Orientation Not on file Job Start Date Occupation Industry Not on file Not on file Not on file documented as of this encounter Miscellaneous Notes * Telephone Encounter - Ye Pack MD - 11/16/2023 9:22 AM EDT Signed Prescriptions: Disp Refills lamoTRIgine 100 MG Oral Tablet (LaMICtal) 180 Ta*3 Sig: Take 1 Tablet by mouth in the morning and 1 Tablet before bedtime. Authorizing Provider: YE PACK * Telephone Encounter - Zaida Contreras LPN - 11/15/2023 11:17 AM EDT Since patient is at 100mg BID now, I pended the Rx for the 100mg tablets. documented in this encounter Plan of Treatment Upcoming Encounters Date Type Department Care Team (Latest Contact Info) Description 11/25/2023 10:40 AM EDT Office Visit Neurology [facility] [address] [facility] [place] [address] Ye Pack MD 200 [facility] [place] [address] 03/01/2024 1:00 PM EDT Hospital Encounter [facility]O [facility], Endoscopy Room [facility] [address] [place] [phone] Jeremy Haney MD [address] [place] [address] 03/01/2024 1:00 PM EDT - 03/01/2024 1:30 PM EDT Surgery ENDO [facility], Endoscopy Room [facility] [address] [place] [phone] Jeremy Haney MD [address] [place] [address] COLONOSCOPY FLEXIBLE PROXIMAL DIAGNOSTIC Scheduled Procedures Name Priority Associated Diagnoses Date/Ti me COLONOSCOPY FLEXIBLE PROXIMAL DIAGNOSTIC History of colon polyps 03/01/2024 1:00 PM EDT Health Maintenance Due Date Last Done Comments Hepatitis C Screening 1970 Cologuard 1997 Sigmoidoscopy 1997 Zoster Vaccines (1 of 2) 2002 Fecal Occult Blood Test 01/26/2004 01/25/2003 COVID-19 Vaccine ( - 2022- season) 2023 Colonoscopy 04/28/2023 04/28/2018, 04/11, 01/30/2013, [...] Not on filedocumented as of this encounter Care Teams Band Edger Relationship Specialty Start Date End Date Dani Schmidt III, MD [address] [facility] [place] [address] PCP - General Family Medicine 10/26/16 documented as of this encounter
--- OUTSIDE RECORDS SUMMARY | 2023-12-29 07:19 | External Medical Summary | Summary of Care ---
Author Name Unknown Organization [facility] Address [address] [place] [address] Phone [phone] Care Team Providers Care Dramatic Coach Name Role Phone Roxana ELMORE MD, Dani Kramer Primary Care Provider [phone] Reason for Visit * Reason Comments Return Neuro Headache * Evaluate & Treat - Unlimited Visits (Within 30 days (routine)) - Pending Review Specialty Diagnoses / Procedures Referred By Андрей singleton Referred To Contact Neurology Diagnoses Atypical cluster headache Enid Mosley PA-C [address] [place] [address] Referral ID Status Reason Start Date Expiration Date Visits Requested Visits Authorized [id number] Pending Review Specialty Services Required 08/25/[phone] Encounter Details Date Type Department Care Team (Late st Contact Info) Description 11/25/2023 10:40 AM EDT Office Visit Neurology [facility] [place] [address] [place] [address] Radha Mcneil MD [address] [place] [address] Migraine without aura and without status migrainosus, not intractable* Allergies Active Allergy Reactions Criticality Noted Date Comments Meperidine And Related 07/16/2000 Very fast heart beat documented as of this encounter (statuses as of 11/25/2023) Medications Medication Sig Dispensed Refills Start Date End Date Status ALEVE 220 MG PO CAPS 1 tab every 12 hours as needed 0 Active acetaminophen (TYLENOL EXTRA STRENGTH) 500 MG Tablet Take 1 Tablet by mouth every 6 hours as needed for Pain. 0 Active zoster vac recomb adjuvanted (SHINGRIX) 50 MCG/0.5ML injectionIndications :Encounter for Zostavax administration Inject 0.5 mL into a large muscle now and repeat dose in 60 to 180 days 1 Each 1 11/23/2018 Active Magnesium 400 MG Capsule Take 1 Capsule by mouth in the morning. 0 Active Riboflavin (VITAMIN B-2) 50 MG TABS Take by mouth. 0 Active Vitamin D3 1.25 MG (72372 UT) Oral Capsule Take 1 Capsule by mouth in the morning. 0 Active Zinc 20 MG Oral Capsule Take by mouth. 0 Active Propranolol HCl 20 MG Oral Tablet (Inderal) Take 1 Tablet by mouth in the morning and 1 Tablet before bedtime. 60 Tablet 5 11/25/2023 Active lamoTRIgine 25 MG Oral Tablet (LaMICtal) 1 pill by mouth twice a day for 1 week then 1 pill by mouth once a day then stop 0 11/25/2023 Active lamoTRIgine 100 MG Oral Tablet (LaMICtal) Take 1 Tablet by mouth in the morning and 1 Tablet before bedtime. 180 Tablet 3 11/16/2023 4 Discontinued documented as of this encounter (statuses as of 11/25/2023) Active Problems Problem Noted Date Diagnosed Date Worsening headaches 08/26/2023 HX-SKIN MALIGNANCY NEC - BCC inframammary 08/1009 05/30/2010 ADVANCE DIRECTIVE INFORMATION 10/07/2006 Overview: No, Advance Directive brochure given to patient at prior appointment. documented as of this encounter (statuses as of 11/25/2023) Resolved Problems Problem Noted Date Diagnosed Date Resolved Date Localized adiposity 10/29/2009 07/20/19 19 Adjustment disorder with depressed mood 01/20/2008 2018 Benign neoplasm of colon 12/13/2007 Overview: adenomatous/repeat colonoscopy in 5 yrs documented as of this encounter (statuses as of 11/25/2023) Immunizations Name Administration Dates Next Due H1N1 [...] on file documented as of this encounter Last Filed Vital Signs Vital Sign Reading Time Taken Comments Blood Pressure 122/72 11/25/2023 10:35 AM EDT Pulse 77 11/25/2023 10:35 AM EDT Temperature 36.6 C (97.9 F) 11/25/2023 10:35 AM E DT Respiratory Rate 16 11/25/2023 10:35 AM EDT Oxygen Saturation 96% 11/25/2023 10:35 AM EDT Inhaled Oxygen Concentration - - Weight 69.1 kg (152 lb 4.8 oz) 11/25/2023 10:35 AM EDT Height - - Body Mass Index 26.14 08/25/2023 10:42 AM EST documented in this encounter Progress Notes * Radha Mcneil MD - 11/25/2023 11:16 AM EDT [place] [address] NAME: Berkley Hernandez Date of : 1950 Date of Visit: 11/25/23 Chief Complaint: Chief Complaint Patient presents with Return Neuro Headache Subjective: f/u migraine; Her headaches are sure but she is having and a 7 acceptable brain fog likely related to the dose of lamotrigine. Medication list says that she has taking a 100 milligrams twice daily but actually she is taking 50 twice daily. Neuro ROS: neg for stroke sx HOME MEDICATIONS : Current Outpatient Medications Medication Sig Dispense Refill ALEVE 220 MG PO CAPS 1 tab every 12 hours as needed acetaminophen (TYLENOL EXTRA STRENGTH) 500 MG Tablet Take 1 Tablet by mouth every 6 hours as neededfor Pain. Magnesium 400 MG Capsule Take 1 Capsule by mouth in the morning. Riboflavin (VITAMIN B-2) 50 MG TABS Take by mouth. Zinc 20 MG Oral Capsule Take by mouth. Propranolol HCl 20 MG Oral Tablet (Inderal) Take 1 Tablet by mouth in the morning and 1 Tablet before bedtime. 60 Tablet 5 lamoTRIgine 25 MG Oral Tablet (LaMICtal) 1 pill by mouth twice a day for 1 week then 1 pill by mouth once a day then stop zoster vac recomb adjuvanted (SHINGRIX) 50 MCG/0.5ML injection Inject 0.5 mL into a large muscle now and repeat dose in 60 to 180 days 1 Each 1 Vitamin D3 1.25 MG (61693 UT) Oral Capsule Take 1 Capsule by mouth in the morning. (Patient not taking: Reported on 08/26/2023) No current facility-administered medications for this visit. Review of patient's allergies indicates: Allergen Reactions Meperidine And Related Very fast heart beat PHYSICAL EXAMINATION: Vital Signs: BP 122/72 | Pulse 77 | Temp 36.6 C (97.9 F) (Tympanic) | Resp 16 | Wt 69.1 kg (152 lb 4.8 oz) |SpO2 96% | BMI 26.14 kg/m | BSA 1.77 m EXAM: Constitutional: appearance normally developed, well nourished. Head and Face: normocephalic and atraumatic Cardiovascular: heart sounds are normal. Rhythm is sinus NEUROLOGIC EXAM Higher integrative is obviously intact. Cranial Nerves: CN 2 - no visual defect on confrontation and pupils round, equal, reactive to light CN 3, 4, 6 - extra-ocular movements intact and no nystagmus CN 7 - no facial asymmetry CN 9, 10 - palate symmetric CN 12 - tongue midline Motor: Normal, without pronator drift Coordination: Normal finger to nose and rapid alternating movement of lower extremities No papilledema IMPRESSION / PLAN: This patient's migraines are somewhat improved but she is having unacceptable side effects. Based on the brain fog topiramate would be contraindicated as well as any of the antidepressants. I am going to attempt the use of propranolol. If this is a failure she and I are going to consider the use of medical Botox or 1 of the CGRP receptor medicine, likely Emgality documented in this encounter Nursing Notes * Roz Fleming MED ASSIST - 11/25/2023 10:34 AM EDT Chief Complaint Patient presents with Return Neuro Headache documented in this encounter Plan of Treatment Upcoming Encounters Date Type Department Care Team (Latest Contact Info) Description 03/01/2024 1:00 PM EDT Hospital Encounter ENDO OSSC, Endoscopy Room [facility] [address] [place] [phone] Jeremy Haney MD [address] [place] [address] 03/01/2024 1:00 PM EDT - 03/01/2024 1:30 PM EDT Surgery ENDO OSS, Endoscopy Room [facility] [address] [place] [phone] Jeremy Haney MD [address] [place] [address] COLONOSCOPY FLEXIBLE PROXIMAL DIAGNOSTIC Scheduled Procedures Name [...] Not on filedocumented as of this encounter Visit Diagnoses Diagnosis Migraine without aura and without status migrainosus, not intractable- Primary Migraine without aura, without mention of intractable migraine without mention of status migrainosus History of colon polyps Personal history of colonic polyps documented in this encounter Care Teams Dramatic Coach Relationship Specialty Start Date End Date Candler III, Dani E, MD 200 [facility] [place] [address] PCP - General Family Medicine 10/26/16 documented as of this encounter"
--- OUTSIDE RECORDS SUMMARY | 2023-12-29 07:20 | External Medical Summary | Summary of Care ---
Author Name Unknown Organization [facility] Address [address] [facility] [address] Phone [phone] Care Team Providers Care Customer Service Manager Name Role Phone Roxana ELMORE MD, Dani Kramer Primary Care Provider Encounter Details Date Type Department Care Team (Late st Contact Info) Description 08/30/2023 Telephone Neurology [facility] [place] [facility] [place] [address] Radha Mcneil MD 200 [facility] [place] [address] Allergies Active Allergy Reactions Criticality Noted Date Comments Meperidine And Related 07/16/2000 Very fast heart beat documented as of this encounter (statuses as of 08/30/2023) Medications Medication Sig Dispensed Refills Start Date [...] 0 Activ e Vitamin D3 1.25 MG (33154 UT) Oral Capsule Take 1 Capsule by mouth in the morning. 0 Active Zinc 20 MG Oral Capsule Take by mouth. 0 Active lamoTRIgine 25 MG Oral Tablet (LaMICtal) Lamotrigine (Lamictal) 25 mg tablets.Take this medicatio as instructed below: 1 tab [...] and call your doctor. 140 Tablet 1 08/30/2023 Active lamoTRIgine 25 MG Oral Tablet (LaMICtal) [...] and call your doctor. 245 Tablet 1 08/26/2023 4 Discontinu ed(Medicat ion List Clean Up) documented as of this encounter (statuses as of 08/30/2023) Active Problems Problem Noted Date Diagnosed Date Worsening headaches 08/26/2023 HX-SKIN MALIGNANCY NEC - BCC inframammary 08/100905/30/2010 ADVANCE DIRECTIVE INFORMATION 10/07/2006 Overview: No, Advance Directive brochure given to patient at prior appointment. documented as of this encounter (statuses as of 08/30/2023) Resolved Problems Problem Noted Date Diagnosed Date Resolved Date Localized adiposity 10/29/2009 07/20/19 Adjustment disorder with depressed mood 01/20/2008 2018 Benign neoplasm of colon 12/13/2007 Overview: adenomatous/repeat colonoscopy in 5 yrs documented as of this encounter (statuses as of 08/30/2023) Immunizations Name Administration Dates Next Due H1N1 2008 Influenza, IM 06/12/2009 Pneumococcal Conjugate Vacc, 13 [...] encounter Miscellaneous Notes * Telephone Encounter - Radha Mcneil MD - 08/30/2023 2:05 PM EST New lamotrigine script sent documented in this encounter Plan of Treatment Upcoming Encounters Date Type Department Care Team (Late st Contact Info) Description 09/30/2023 9:45 AM EDT Imaging Radiology [address] [place] [address] 11/25/2023 10:40 AM EDT Office Visit Neurology [facility] [place] [address] Radha Mcneil MD 200 [facility] [place] [address] Health Maintenance Due Date Last Done Comments Hepatitis C Screening 1968 Zoster Vaccines (1 of 2) 2002 COVID-19 Vaccine (1 - 2022- season) 2023 Influenza Vaccine (FLU shot) (#1) 2023 03/24/2019, 05/04/2018, 08/06/2017, Additional history exists COLONOSCOPY-EVERY 5 YRS AGES 18-100 04/28/2023 04/28/2018, 04/28/2018, 01/30/2013, Additional history exists Mammogram 09/29/2023 09/28/2022, 09/09, 05/19/2018, Additional history exists DXA Scan 08/11/2024 08/11/2017, 12/12/2007 Depression Screening 08/25/2024 08/25/2023 DTaP,Tdap,and Td Vaccines (2 - Td or Tdap) 08/06/2027 08/06/2017, 12/07/2001, 08/19/1981 Lipid Panel 08/25/2028 08/25/2023, 03/2019, 12/09/2005, Additional history exists Pneumococcal Vaccine: 65+ Years [...] as of this encounter Visit Diagnoses Diagnosis Worsening headaches- Primary Headache documented in this encounter Care Teams Customer Service Manager Relationship Specialty Start Date End Date Dani Schmidt III, MD [address] [place] [address] PCP - General Family Medicine 10/26/16 documented as of this encounter
--- OUTSIDE RECORDS SUMMARY | 2023-12-29 07:20 | External Medical Summary | Summary of Care ---
Author Name Unknown Organization [facility] Address [address] [facility] [place] [address] Phone [phone] Care Team Providers Care Sales Agent Pest Control Service Name Role Phone Roxana ELMORE MD, Dani Kramer Primary Care Provider [phone] Reason for Visit * Reason Onset Date Comments Test Results Lab 08/30/2023 Encounter Details Date Type Department Care Team (Late st Contact Info) Description 08/30/2023 Telephone Neurology [facility] [place] [address] Radha Mcneil MD [facility] [place] [address] Test Results Lab Allergies Active Allergy Reactions Criticality Noted Date [...] 0 Activ e Vitamin D3 1.25 MG (39393 UT) Oral Capsule Take 1 Capsule by [...] call your doctor. 245 Tablet 1 08/26/2023 Active documented as of this encounter (statuses [...] Split, I IV3, With Preserve, Inj 05/04/2011,06/12/2009 TD - Tetanus/Diptheria (ADULT) 12/07/2001,1981 TDAP (age 10 and older)(Boostrix) 08/06/2017 documented [...] encounter Miscellaneous Notes * Telephone Encounter - Chelsea Lauren LPN - 08/30/2023 1:40 PM EST CAD Crowd message sent. * Telephone Encounter - Radha Mcneil MD - 08/30/2023 1:34 PM EST BW nl; how is it going with lamotrigine? documented in this encounter Plan of Treatment Upcoming Encounters Date Type Department Care Team (Late st Contact Info) Description 09/30/2023 9:45 AM EDT Imaging Radiology [address] [place] [address] 11/25/2023 10:40 AM EDT Office Visit Neurology [facility] 200 [facility] [place] [address] Radha Mcneil MD 200 [facility] [place] [address] Health Maintenance Due Date Last Done Comments Hepatitis C Screening 1970 Zoster Vaccines (1 of 2) 2002 COVID-19 Vaccine ( - 2022- season) 2023 Influenza Vaccine (FLU [...] filedocumented as of this encounter Care Teams Sales Agent Pest Control Service Relationship Specialty Start Date End Date Dani Schmidt III, MD 200 [facility] [place] [address] PCP - General Family Medicine 10/26/16 documented as of this encounter
--- OUTSIDE RECORDS SUMMARY | 2023-12-29 07:20 | External Medical Summary | Summary of Care ---
Author Name Unknown Organization [facility] Address [address] [facility] [address] Phone [phone] Care Team Providers Care Spring Tacker Name Role Phone Roxana ELMORE MD, Dani Kramer Primary Care Provider Encounter Details Date Type Department Care Team (Late st Contact Info) Description 08/30/2023 Telephone Neurology [facility] [place] [facility] [place] [address] Radha Mcneil MD 200 [facility] [place] [address] Allergies Active Allergy Reactions Criticality Noted Date [...] 0 Activ e Vitamin D3 1.25 MG (60446 UT) Oral Capsule Take 1 Capsule by [...] Description 09/30/2023 9:45 AM EDT Imaging Radiology [address] [place] [address] 11/25/2023 10:40 AM EDT Office Visit Neurology [facility] [place] [address] Radha Mcneil MD 200 [facility] [place] [address] Health Maintenance Due Date Last Done Comments [...] Headache documented in this encounter Care Teams Spring Tacker Relationship Specialty Start Date End Date Dani Schmidt III, MD 200 [place] [address] PCP - General Family Medicine 10/26/16 documented as of this encounter
--- OUTSIDE RECORDS SUMMARY | 2023-12-29 07:20 | External Medical Summary | Summary of Care ---
Author Name Unknown Organization [facility] Address [address] [facility] [place] [address] Phone [phone] Care Team Providers Care Switcher Name Role Phone Roxana ELMORE MD, Dani Kramer Primary Care Provider [phone] Reason for Visit * Reason Onset Date Comments Medication Question 08/27/2023 Encounter Details Date Type Department Care Team (Late st Contact Info) Description 08/27/2023 Refill Neurology [facility] [place] [address] Ye Pack MD 200 [facility] [place] [address] Allergies Active Allergy Reactions Criticality Noted Date [...] 0 Activ e Vitamin D3 1.25 MG (55880 UT) Oral Capsule Take 1 Capsule by [...] and call your doctor. 245 Tablet 1 08/30/2023 Active documented as of this encounter (statuses [...] Encounter - Chelsea Lauren LPN - 08/30/2023 2:17 PM ESTSigned Prescriptions: Disp Refills lamoTRIgine 25 MG Oral Tablet (LaMICtal) 245 Ta*1 Sig: Lamotrigine (Lamictal) 25 mg tablets. Take this medicatio as instructed below: -Weeks 1: take 25 mg (1 tab) in the morning and 25 mg (1 tab) at bedtime -Week 2: take 50mg in the morning and 25 mg at bedtime -Week 3 : take 50mg in the morning and 50 mg at bedtime -Week 4: take75 mg in the morning and 50 mg [...] please stop the medication and call your doctor.Authorizing Provider: YE PACK * Telephone Encounter - Ye Pack MD - 08/30/2023 2:11 PM EST Signed Prescriptions: Disp Refills lamoTRIgine 25 MG Oral Tablet (LaMICtal) 245 Ta*1 Sig: Lamotrigine (Lamictal) 25 mg tablets. Take this medicatio as instructed below: -Weeks 1: take 25 mg (1 tab) in the morning and 25 mg (1 tab) at bedtime -Week 2: take 50mg in the morning and 25 mg at bedtime -Week 3 : take 50mg in the morning and 50 mg at bedtime -Week 4: take75 mg in the morning and 50 mg [...] please stop the medication and call your doctor.Authorizing Provider: YE PACK * Telephone Encounter - Elizabet Lu LPN - 08/27/2023 8:53 AM EST Pharmacy sent note stating sig is too long. They need a corrected rx. documented in this encounter Plan of Treatment Upcoming Encounters Date Type Department Care Team (Late st Contact Info) Description 09/30/2023 9:45 AM EDT Imaging Radiology [address] 132 [facility] [place] [address] 11/25/2023 10:40 AM EDT Office Visit Neurology [facility] 200 [facility] [place] [address] Ye Pack MD 200 [facility] [place] [address] Health Maintenance Due Date Last Done Comments [...] filedocumented as of this encounter Care Teams Switcher Relationship Specialty Start Date End Date Dani Schmitd III, MD [address] [place] [address] PCP - General Family Medicine 10/26/16 documented as of this encounter
--- OUTSIDE RECORDS SUMMARY | 2023-12-29 07:20 | External Medical Summary | Summary of Care ---
Author Name Unknown Organization [facility] Address [address] [facility] [place] [address] Phone [phone] Care Team Providers Care Clothes Designer Name Role Phone Roxana ELMORE MD, Dani Kramer Primary Care Provider [phone] Reason for Visit * Reason Onset Date Comments Appointment 09/07/2023 colon Encounter Details Date Type Department Care Team (Late st Contact Info) Description 09/07/2023 Telephone Family Practice [facility] 200 [facility] [place] [address] Dani Schmidt III, MD 200 [place] [address] Appointment (colon) Allergies Active Allergy Reactions Criticality Noted Date Comments Meperidine And Related 07/16/2000 Very fast heart beat documented as of this encounter (statuses as of 09/27/2023) Medications Medication Sig Dispensed Refills Start Date [...] 0 Activ e Vitamin D3 1.25 MG (87913 UT) Oral Capsule Take 1 Capsule by [...] your doctor. 245 Tablet 1 08/30/2023 Active lamoTRIgine 25 MG [...] your doctor. 140 Tablet 1 08/30/2023 Active documented as of this encounter (statuses as of 09/27/2023) Active Problems Problem Noted Date Diagnosed Date Worsening headaches 08/26/2023 HX-SKIN MALIGNANCY NEC - BCC inframammary 08/100905/30/2010 ADVANCE DIRECTIVE INFORMATION 10/07/2006 Overview: No, Advance Directive brochure given to patient at prior appointment. documented as of this encounter (statuses as of 09/27/2023) Resolved Problems Problem Noted Date Diagnosed Date Resolved Date Localized adiposity 10/29/2009 07/20/19 19 Adjustment disorder with depressed mood 01/20/2008 2018 Benign neoplasm of colon 12/13/2007 Overview: adenomatous/repeat colonoscopy in 5 yrs documented as of this encounter (statuses as of 09/27/2023) Immunizations Name Administration Dates Next Due H1N1 [...] encounter Miscellaneous Notes * Telephone Encounter - González Pulido OSA - 09/27/2023 11:35 AM EDT Colon romulo'd 03/01 w/ Lyndon. * Telephone Encounter - Ivette Quiñones OSA - 09/07/2023 4:59 PM EST Received an order for a screening colon. Lmm for pt to call back. documented in this encounter Plan of Treatment Upcoming Encounters Date Type Department Care Team (Latest Contact Info) Description 09/30/2023 9:45 AM EDT Imaging Radiology [address] [place] [address] 11/25/2023 10:40 AM EDT Office Visit Neurology [facility] 200 [facility] [place] [address] Radha Mcneil MD 200 [facility] [place] [address] 03/01/2024 1:00 PM EDT Hospital Encounter ENDO [facility], Endoscopy Room [facility] [address] [place] [phone] Jeremy Haney MD [address] [place] [address] 03/01/2024 1:00 PM EDT - 03/01/2024 1:30 PM EDT Surgery ENDO [facility], Endoscopy Room [facility] [address] [place] [phone] Jeremy Haney MD [address] [place] [address] COLONOSCOPY FLEXIBLE PROXIMAL DIAGNOSTIC Scheduled Procedures Name Priority Associated Diagnoses Date/Ti me COLONOSCOPY FLEXIBLE PROXIMAL DIAGNOSTIC History of colon polyps 03/01/2024 1:00 PM EDT Health Maintenance Due Date Last Done Comments Hepatitis C Screening 1968 Zoster Vaccines (1 of 2) 2002 COVID-19 Vaccine ( season) 2023 Influenza Vaccine (FLU shot) (#1) [...] filedocumented as of this encounter Care Teams Clothes Designer Relationship Specialty Start Date End Date Roxana ELMORE, Dani Kramer MD [address] [place] [address] PCP - General Family Medicine 10/26/16 documented as of this encounter
--- OUTSIDE RECORDS SUMMARY | 2023-12-29 07:20 | External Medical Summary | Summary of Care ---
Author Name Unknown Organization [facility] Address [address] [place] [address] Phone [phone] Care Team Providers Care Photoengraving Helper Name Role Phone Roxana ELMORE MD, Dani Kramer Primary Care Provider [phone] Reason for Visit * Reason Onset Date Comments Health Maintenance 09/08/2023 Encounter Details Date Type Department Care Team (Late st Contact Info) Description 09/08/2023 Telephone Family Practice [facility] [address] [place] [address] Dani Schmidt III, MD 200 [facility] [place] [address] Health Maintenance Allergies Active Allergy Reactions Criticality Noted Date Comments Meperidine And Related 07/16/2000 Very fast heart beat documented as of this encounter (statuses as of 09/08/2023) Medications Medication Sig Dispensed Refills Start Date [...] 0 Activ e Vitamin D3 1.25 MG (75045 UT) Oral Capsule Take 1 Capsule by [...] as of this encounter (statuses as of 09/08/2023) Active Problems Problem Noted Date Diagnosed Date Worsening headaches 08/26/2023 HX-SKIN MALIGNANCY NEC - BCC inframammary 08/100905/30/2010 ADVANCE DIRECTIVE INFORMATION 10/07/2006 Overview: No, Advance Directive brochure given to patient at prior appointment. documented as of this encounter (statuses as of 09/08/2023) Resolved Problems Problem Noted Date Diagnosed Date Resolved Date Localized adiposity 10/29/2009 07/20/19 19 Adjustment disorder with depressed mood 01/20/2008 2018 Benign neoplasm of colon 12/13/2007 Overview: adenomatous/repeat colonoscopy in 5 yrs documented as of this encounter (statuses as of 09/08/2023) Immunizations Name Administration Dates Next Due H1N1 [...] encounter Miscellaneous Notes * Telephone Encounter - Eugenia Schroeder LPN - 09/08/2023 8:47 AM EST Care Gaps Comprehensive Care Outreach Last Office/Telemedicine Visit: 08/25/2023 (in office), Visit date not found (telemedicine) Next Office Visit: Visit date not found Hemoglobin AIC Results: Lab Results Component Value Date/Time HEMOGLOBIN A1C - [facility] 5.8 (H) 08/25/2023 12:02 PM BP Readings from Last 1 Encounters: 08/26/23 124/74 Reviewed Health Maintenance below: Health Maintenance Topic Date Due Hepatitis C Screening Never done Zoster Vaccines (1 of 2) Never done Influenza Vaccine (FLU shot) (1) 03/12/2023 COVID-19 Vaccine ( - season) Never done COLONOSCOPY-EVERY 5 YRS AGES 18-100 04/28/2023 Mammogram 09/29/2023 Mamm march already scheduled Colon endo is reaching out Care Gap Outreach Action Taken: outreach not indicated documented in this encounter Plan of Treatment Upcoming Encounters Date Type Department Care Team (Late st Contact Info) Description 09/30/2023 9:45 AM EDT Imaging Radiology [address] 132 [facility] [place] [address] 11/25/2023 10:40 AM EDT Office Visit Neurology [facility] [address] [place] [address] Radha Mcneil MD [address] [facility] [place] [address] Health Maintenance Due Date Last Done Comments Hepatitis C Screening 1968 Zoster Vaccines (1 of 2) 2002 COVID-19 Vaccine ( - season) 2023 Influenza Vaccine (FLU shot) (#1) [...] filedocumented as of this encounter Care Teams Photoengraving Helper Relationship Specialty Start Date End Date Dani Schmidt III, MD 200 [facility] [place] [address] PCP - General Family Medicine 10/26/16 documented as of this encounter
--- OUTSIDE RECORDS SUMMARY | 2023-12-29 07:20 | External Medical Summary | Summary of Care ---
Author Name Unknown Organization [facility] Address [address] [address] Phone [phone] Care Team Providers Care Wheel Cutter Name Role Phone Roxana ELMORE MD, Dani Kramer Primary Care Provider [phone] Reason for Visit * Reason Onset Date Comments Precert Not Needed 08/31/2023 Lamictal Encounter Details Date Type Department Care Team (Late st Contact Info) Description 08/31/2023 Telephone Neurology [facility] [address] [place] [address] Radha Mcneil MD 200 [place] [address] Precert Not Needed ( Lamictal) Allergies Active Allergy Reactions Criticality Noted Date Comments Meperidine And Related 07/16/2000 Very fast heart beat documented as of this encounter (statuses as of 09/01/2023) Medications Medication Sig Dispensed Refills Start Date [...] 0 Activ e Vitamin D3 1.25 MG (32074 UT) Oral Capsule Take 1 Capsule by [...] as of this encounter (statuses as of 09/01/2023) Active Problems Problem Noted Date Diagnosed Date Worsening headaches 08/26/2023 HX-SKIN MALIGNANCY NEC - BCC inframammary 08/100905/30/2010 ADVANCE DIRECTIVE INFORMATION 10/07/2006 Overview: No, Advance Directive brochure given to patient at prior appointment. documented as of this encounter (statuses as of 09/01/2023) Resolved Problems Problem Noted Date Diagnosed Date Resolved Date Localized adiposity 10/29/2009 01/09/20 19 Adjustment disorder with depressed mood 01/20/2008 2018 Benign neoplasm of colon 12/13/2007 Overview: adenomatous/repeat colonoscopy in 5 yrs documented as of this encounter (statuses as of 09/01/2023) Immunizations Name Administration Dates Next Due H1N1 [...] Telephone Encounter - Chelsea Lauren LPN - 08/31/2023 8:16 AM EST Neurology Pre-Cert Request Medication/Disease State Information: Medication: Lamictal 25mg Weeks 1: take 25 mg (1 tab) in the morning and 25 mg (1 tab) at bedtime -Week 2: take 50mg in the morning and 25 mg at bedtime -Week 3 : take 50mg in the morning and 50 mg at bedtime -Week 4: take 75 mg in the morning and 50 mg at bedtime -Week 5: take 75 mg in the morningand 75 mg at bedtime -Week 6: take 100 mg in the morning and 75 mg at bedtime -Week 7: Take 100 mg in the morning and 100 mg. At bedtime 245 tablets of 25 mg Diagnosis (including ICD-10): Migraine - Chronic Migraine G43.709 - Self- administered - route pre-cert request to [id number] See corresponding visit note(s) for additional supporting clinical information. Office Information: Prescriber: Radha Mcneil MD documented in this encounter Plan of Treatment Upcoming Encounters Date Type Department Care Team (Late st Contact Info) Description 09/30/2023 9:45 AM EDT Imaging Radiology [address] 132 [facility] [place] [address] 11/25/2023 10:40 AM EDT Office Visit Neurology [facility] 200 [facility] [place] [address] Radha Mcneil MD 200 [facility] [place] [address] Health Maintenance Due Date Last Done Comments Hepatitis C Screening 1968 Zoster Vaccines (1 of 2) 2002 COVID-19 Vaccine (2022- season) 2023 Influenza Vaccine (FLU shot) (#1) [...] filedocumented as of this encounter Care Teams Wheel Cutter Relationship Specialty Start Date End Date Dani Schmidt III, MD [address] [place] [address] PCP - General Family Medicine 10/26/16 documented as of this encounter
--- OUTSIDE RECORDS SUMMARY | 2023-12-29 07:20 | External Medical Summary | Summary of Care ---
Author Name Unknown Organization [facility] Address [address] [place] [address] Phone [phone] Care Team Providers Care Map Clerk Name Role Phone Roxana ELMORE MD, Dani Kramer Primary Care Provider [phone] Reason for Visit * Reason Onset Date Comments Abnormal Test Results 09/01/2023 Encounter Details Date Type Department Care Team (Late st Contact Info) Description 09/01/2023 Telephone Family Practice [facility] 200 [facility] [place] [address] Dani Schmidt III, MD 200 [place] [address] Abnormal Test Results Allergies Active Allergy Reactions Criticality Noted Date [...] 0 Activ e Vitamin D3 1.25 MG (56031 UT) Oral Capsule Take 1 Capsule by [...] encounter Miscellaneous Notes * Telephone Encounter - Shama Serrano, MED ASSIST - 09/01/2023 9:11 AM EST ----- Message from Enid Mosley PA-C sent at 08/31/2023 8:07 AM EST ----- Please send a lab letter stating xray results abnormal. No significant change. Degenerative disc noted and some arthritis. documented in this encounter Plan of Treatment Upcoming Encounters Date Type Department Care Team (Late st Contact Info) Description 09/30/2023 9:45 AM EDT Imaging Radiology [address] [address] 11/25/2023 10:40 AM EDT Office Visit Neurology [facility] 200 [facility] [place] [address] Radha Mcneil MD 200 [facility] [place] [address] Health Maintenance Due Date Last Done Comments [...] filedocumented as of this encounter Care Teams Map Clerk Relationship Specialty Start Date End Date Dani Schmidt III, MD [address] [place] [address] PCP - General Family Medicine 10/26/16 documented as of this encounter
--- OUTSIDE RECORDS SUMMARY | 2023-12-29 07:20 | External Medical Summary | Summary of Care ---
Author Name Unknown Organization [facility] Address [address] [facility] [facility] [address] Phone [phone] Care Team Providers Care Shop Fitter Name Role Phone Roxana ELMORE MD, Dani Kramer Primary Care Provider [phone] Reason for Visit * Reason Onset Date Comments Medication Pre-auth 08/31/2023 Lamictal Encounter Details Date Type Department Care Team (Late st Contact Info) Description 08/31/2023 Telephone Neurology [facility] [address] [place] [address] Radha Mcneil MD 200 [place] [address] Medication Pre-auth (Lamictal) Allergies Active Allergy Reactions Criticality Noted Date Comments Meperidine And Related 07/16/2000 Very fast heart beat documented as of this encounter (statuses as of 08/31/2023) Medications Medication Sig Dispensed Refills Start Date [...] 0 Activ e Vitamin D3 1.25 MG (40640 UT) Oral Capsule Take 1 Capsule by [...] as of this encounter (statuses as of 08/31/2023) Active Problems Problem Noted Date Diagnosed Date Worsening headaches 08/26/2023 HX-SKIN MALIGNANCY NEC - BCC inframammary 08/100905/30/2010 ADVANCE DIRECTIVE INFORMATION 10/07/2006 Overview: No, Advance Directive brochure given to patient at prior appointment. documented as of this encounter (statuses as of 08/31/2023) Resolved Problems Problem Noted Date Diagnosed Date Resolved Date Localized adiposity 10/29/2009 01/09/20 19 Adjustment disorder with depressed mood 01/20/2008 2018 Benign neoplasm of colon 12/13/2007 Overview: adenomatous/repeat colonoscopy in 5 yrs documented as of this encounter (statuses as of 08/31/2023) Immunizations Name Administration Dates Next Due H1N1 [...] Self- administered - route pre-cert request to [id number] See corresponding visit note(s) for additional supporting clinical information. Office Information: Prescriber: Radha Mcneil MD documented in this encounter Plan of Treatment Upcoming Encounters Date Type Department Care Team (Late st Contact Info) Description 09/30/2023 9:45 AM EDT Imaging Radiology [address] 132 [facility] [place] [address] 11/25/2023 10:40 AM EDT Office Visit Neurology [facility] 200 [place] [address] Radha [facility]neil MD [facility] [address] Health Maintenance Due Date Last Done Comments [...] filedocumented as of this encounter Care Teams Shop Fitter Relationship Specialty Start Date End Date Dani Schmidt III, MD [address] [place] [address] PCP - General Family Medicine 10/26/16 documented as of this encounter
--- OUTSIDE RECORDS SUMMARY | 2023-12-29 07:20 | External Medical Summary | Summary of Care ---
Author Name Unknown Organization [facility] Address [address] [place] [place] [facility] [place] [address] Phone [phone] Care Team Providers Care Frame Nailer Name Role Phone Roxana ELMORE MD, John E Primary Care Provider [phone] Encounter Details Date Type Department Care Team (Late st Contact Info) Description 09/07/2023 Telephone Family Practice [facility] [address] [facility] [place] [address] Dani Schmidt III, MD [facility] [address] Allergies Active Allergy Reactions Criticality Noted Date Comments Meperidine And Related 07/16/2000 Very fast heart beat documented as of this encounter (statuses as of 09/07/2023) Medications Medication Sig Dispensed Refills Start Date [...] 0 Activ e Vitamin D3 1.25 MG (55432 UT) Oral Capsule Take 1 Capsule by [...] as of this encounter (statuses as of 09/07/2023) Active Problems Problem Noted Date Diagnosed Date Worsening headaches 08/26/2023 HX-SKIN MALIGNANCY NEC - BCC inframammary 08/100905/30/2010 ADVANCE DIRECTIVE INFORMATION 10/07/2006 Overview: No, Advance Directive brochure given to patient at prior appointment. documented as of this encounter (statuses as of 09/07/2023) Resolved Problems Problem Noted Date Diagnosed Date Resolved Date Localized adiposity 10/29/2009 07/20/19 Adjustment disorder with depressed mood 01/20/2008 2018 Benign neoplasm of colon 12/13/2007 Overview: adenomatous/repeat colonoscopy in 5 yrs documented as of this encounter (statuses as of 09/07/2023) Immunizations Name Administration Dates Next Due H1N1 [...] encounter Miscellaneous Notes * Telephone Encounter - Ivette Quiñones OSA - 09/07/2023 4:59 PM EST Received an order for a screening colon. Lmm for pt to call back. documented in this encounter Plan of Treatment Upcoming Encounters Date Type Department Care Team (Late st Contact Info) Description 09/30/2023 9:45 AM EDT Imaging Radiology [address] [place] [address] 11/25/2023 10:40 AM EDT Office Visit Neurology [facility] 200 [facility] [place] [address] Radha Mcneil MD 200 [facility] [place] [address] Health Maintenance Due Date Last Done Comments [...] filedocumented as of this encounter Care Teams Frame Nailer Relationship Specialty Start Date End Date Roxana III, Dani E, MD 200 [facility], [place] [id number] PCP - General Family Medicine 10/26/16 documented as of this encounter
--- OUTSIDE RECORDS SUMMARY | 2023-12-29 07:21 | External Medical Summary | Summary of Care ---
Author Name Unknown Organization [facility] Address [address] [place] [address] Phone [phone] Care Team Providers Care Commercial Account Executive Name Role Phone Roxana ELMORE MD, Dani Kramer Primary Care Provider [phone] Reason for Visit * Reason Comments NEW PATIENT Headache * Evaluate & Treat - Unlimited Visits (Within 30 days (routine)) - Pending Review Specialty Diagnoses / Procedures Referred By Андрей singleton Referred To Contact Neurology Diagnoses Atypical cluster headache Enid Mosley PA-C [address] [place] [address] Referral ID Status Reason Start Date Expiration Date Visits Requested Visits Authorized [id number] Pending Review Specialty Services Required 08/25/[phone] Encounter Details Date Type Department Care Team (Late st Contact Info) Description 08/26/2023 10:40 AM EST Office Visit Neurology [facility] [place] [address] [place] [address] Radha Mcneil MD [address] [place] [address] Worsening headaches* Allergies Active Allergy Reactions Criticality Noted Date Comments Meperidine And Related 07/16/2000 Very fast heart beat documented as of this encounter (statuses as of 08/26/2023) Medications Medication Sig Dispensed Refills Start Date [...] 0 Activ e Vitamin D3 1.25 MG (11097 UT) Oral Capsule Take 1 Capsule by [...] as of this encounter (statuses as of 08/26/2023) Active Problems Problem Noted Date Diagnosed Date Worsening headaches 08/26/2023 HX-SKIN MALIGNANCY NEC - BCC inframammary 08/1009 05/30/2010 ADVANCE DIRECTIVE INFORMATION 10/07/2006 Overview: No, Advance Directive brochure given to patient at prior appointment. documented as of this encounter (statuses as of 08/26/2023) Resolved Problems Problem Noted Date Diagnosed Date Resolved Date Localized adiposity 10/29/2009 07/20/19 19 Adjustment disorder with depressed mood 01/20/2008 2018 Benign neoplasm of colon 12/13/2007 Overview: adenomatous/repeat colonoscopy in 5 yrs documented as of this encounter (statuses as of 08/26/2023) Immunizations Name Administration Dates Next Due H1N1 [...] Sign Reading Time Taken Comments Blood Pressure 124/74 08/26/2023 10:39 AM EST Pulse 78 08/26/2023 10:39 AM EST Temperature 36.3 C (97.3 F) 08/26/2023 10:[address] Respiratory Rate 16 08/26/2023 10:39 AM EST Oxygen Saturation 97% 08/26/2023 10:39 AM EST Inhaled Oxygen Concentration - - Weight 71.8 kg (158 lb 3.2 oz) 08/26/2023 10:39 AM EST Height - - Body Mass Index 27.15 08/25/2023 10:42 AM EST documented in this encounter Progress Notes * Radha Mcneil MD - 08/26/2023 11:05 AM EST HISTORY AND PHYSICAL EXAMINATION [place] [address] NAME: Berkley Hernandez Date of : 1950 Date of Visit: 08/26/23 Chief Complaint: Chief Complaint Patient presents with NEW PATIENT Headache HPI: Berkley Hernandez is a 73 year old female presenting with headaches. Headaches are primarily holocranial they do vary in place. Timing is now ongoing 01/02, every minute of every day. Duration has been for about 15 years and there have been no modifiers attempted. When the headaches began 15 years ago they were intermittent and then became more frequent until they are now continuous virtually. During that time course she did have 2 headaches with nausea and had an intermittent trianglehypoxia which was not temporarily related to the headaches. She does not snore. HOME MEDICATIONS : Current Outpatient Medications Medication Sig Dispense Refill Zinc 20 MG Oral Capsule Take by mouth. ALEVE 220 MG PO CAPS 1 tab every 12 hours as needed acetaminophen (TYLENOL EXTRA STRENGTH) 500 MG Tablet Take 1 Tablet by mouth every 6 hours as neededfor Pain. zoster vac recomb adjuvanted (SHINGRIX) 50 MCG/0.5ML injection Inject 0.5 mL into a large muscle now and repeat dose in 60 to 180 days 1 Each 1 Magnesium 400 MG Capsule Take 1 Capsule by mouth in the morning. Riboflavin (VITAMIN B-2) 50 MG TABS Take by mouth. Vitamin D3 1.25 MG (63710 UT) Oral Capsule Take 1 Capsule by mouth in the morning. (Patient not taking: Reported on 08/26/2023) No current facility-administered medications for this visit. Review of patient's allergies indicates: Allergen Reactions Meperidine And Related Very fast heart beat Past Medical History: Diagnosis Date Benign neoplasm of colon 12/13/07 adenomatous/repeat colonoscopy in 5 yrs Cervical spondylosis 10/13/06 see MRI mild spondylosis, C6-7 canal narrowing 0.8 cm Past Surgical History: Procedure Laterality Date BREAST BIOPSY Bilateral several cyst excisions in her 30s COLONOSCOPY W/ BIOPSY (RECTUM) 12/2007 adenomatous repeat in 5 years COLONOSCOPY, DIAGNOSTIC (RECTUM) 01/30/2013 COLONOSCOPY FLEXIBLE PROXIMAL DIAGNOSTIC performed by Waldemar Phillips MD at ENDOSCOPY [facility] COLONOSCOPY, DIAGNOSTIC (RECTUM) 04/28/2018 COLONOSCOPY FLEXIBLE PROXIMAL DIAGNOSTIC performed by Waldemar Phillips MD at ENDOSCOPY [facility] EX OF EXCES SKIN,ABDOM 09/05/2010 EXCISION,EXCESSIVE SKIN AND SUBCUTANEOUS TISSUE INCLUDING LIPECTOMY ABDOMEN ABDOMINOPLASTY performed by ALAN BECK at OR [facility] EXCISION EXCES SKIN,PANNICULECTOMY,INFRAUMB 09/05/2010 EXCISION EXCESSIVE SKIN AND SUBCUTANEOUS TISSUE INCLUDIING LIPECTOMY ABDOMEN INFRAUMBILICAL PANNICULECTOMY performed by ALAN BECK at OR [facility] INFORMATION 07/2009 moles removed LIGATE/CUT OVIDUCT(S) 08/15/1982 Tubal Ligation PARTIAL HYSTERECTOMY 1992 cervix present - fibroids, ovaries intact [facility] [place] REMOVE TONSILS & ADENOIDS, AGE 12+ US GUIDED BREAST BIOPSY RIGHT Right 12/22/2005 benign Family History Problem Relation Age of Onset Uterine cancer Mother Heart Disorder Father rheumatic fever COPD Sister Hypertension Sister No Known Problems Grandmother (Maternal) Colon cancer Grandfather (Maternal) dx elderly No Known Problems Grandfather (Paternal) Breast Cancer No significant family history Social History Socioeconomic History Marital status: Spouse name: Not on file Number of children: Not on file Years of education: Not on file Highest education level: Not on file Occupational History 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: [employer] Tobacco Use Smoking status: Never Smokeless tobacco: Never Substance and Sexual Activity Alcohol use: No Drug use: No Sexual activity: Yes Partners: Male control/protection: Surgical Comment: hyst cervix present Other Topics Concern Service Not Asked Blood Transfusions Not Asked Caffeine Concern Not Asked Occupational Exposure Not Asked Hobby Hazards Not Asked Sleep Concern Not Asked Stress Concern Not Asked Weight Concern Not Asked Special Diet Not Asked Back Care Not Asked Exercise Yes Comment: walks 6-7x/wk Bike Helmet Not Asked Seat Belt Not Asked Self-Exams Yes Comment: breast, occ Social History Narrative Not on file Social Determinants of Health Financial Resource Strain: Not on file Food Insecurity: No Food Insecurity (08/25/2023) Hunger Vital Sign Worried About Running Out of Food in the Last Year: Never true Ran Out of Food in the Last Year: Never true Transportation Needs: Not on file Physical Activity: Not on file Stress: Not on file Social Connections: Not on file Intimate Partner Violence: Not on file Housing Stability: Not on file ROS: Review of Systems Constitutional: Negative. HENT: Positive for tinnitus. Eyes: Negative. Respiratory: Negative. Cardiovascular: Negative. Gastrointestinal: Negative. Endocrine: Negative. Genitourinary: Negative. Musculoskeletal: Negative. Allergic/Immunologic: Negative. Neurological: Negative. Hematological: Negative. Psychiatric/Behavioral: Negative. All other systems reviewed and are negative. PHYSICAL EXAMINATION: Vital Signs: BP 124/74 | Pulse 78 | Temp 36.3 C (97.3 F) (Tympanic) | Resp 16 | Wt 71.8 kg (158 lb 3.2 oz) |SpO2 97% | BMI 27.15 kg/m | BSA 1.8 m EXAM: Constitutional: appearance normally developed, with no deformities Heart sounds are normal Examination of the peripheral vascular system by observation does not reveal varicosity or edema. Palpation reveals normal pulses and temperature Carotid arteries reveal no bruit. NEUROLOGIC EXAMINATION: Appearance: no acute distress Opthalmoscopic: disc flat, normal fundus The patient has obviously intact higher integrative functioning to orientation, language, fund of knowledge, attention to the examiner, and memory Speech: no dysarthria Cranial Nerves: CN 2 - no visual defect on confrontation. CN 3, 4, 6 - extra-ocular movements intact and no nystagmus; with round pupils appropriately reactive to light and accomodation CN 5 - facial sensation intact CN 7 - no facial asymmetry CN 8 - intact hearing CN 9, 10 - palate symmetric CN 11 - good shoulder shrug CN 12 - tongue midline Gait and station: normal Coordination: normal finger to nose testing and rapid alternating movements of the lower extremities. No tremor is seen. Sensory: intact to light touch and pain Muscle Tone: normal Muscle exam:Nl in all extremities without pronator drift. Reflexes: Normal with downgoing toes IMPRESSION / PLAN: I think this patient is having ongoing migraine headaches. There are intermittent at the beginning and the pain cycle has been set up to where the present continuously. I think the theoretical use of Botox medically would probably be the best approach but the patient is a bit resistant to this and recognizes that insurance would not pay for it anyway. We discussed the use of lamotrigine I am going to prescribe this and see how this does. Radha Mcneil MD documented in this encounter Nursing Notes * Roz Fleming, MED ASSIST - 08/26/2023 10:38 AM EST Chief Complaint Patient presents with NEW PATIENT Headache documented in this encounter Plan of Treatment Upcoming Encounters Date Type Department Care Team (Late st Contact Info) Description 09/30/2023 9:45 AM EDT Imaging Radiology [address] [facility] [place] [address] 11/25/2023 10:40 AM EDT Office Visit Neurology [facility] [address] [place] [address] Radha Mcneil MD [address] [place] [address] Pending Results Name Type Priority Associated Diagnoses Date /Time ANTINUCLEAR ANTIBODY (URI) EIA SCREEN WITH REFLEX AB QUANT Lab Routine Worsening headaches 08/25/2023 12:02 PM EST LYME DISEASE ANTIBODY SCREEN WITH REFLEX TO CONFIRMATION Lab Routine Worsening headaches 08/25/2023 12:02 PM EST LYME DISEASE ANTIBODY SCREEN Lab Routine Worsening headaches 08/25/2023 12:02 PM EST ANTINUCLEAR ANTIBODY (URI) SCREEN, OLIVERIO Lab Routine Worsening headaches 08/25/2023 12:02 PM EST Health Maintenance Due Date Last Done Comments COVID-19 Vaccine (#1) 01/17/1951 Hepatitis C Screening 1968 Zoster Vaccines (1 of 2) 2002 Influenza Vaccine (FLU shot) (#1) 2023 03/24/2019, [...] Headache documented in this encounter Care Teams Commercial Account Executive Relationship Specialty Start Date End Date Dani Schmidt III, MD [address] [place] [address] PCP - General Family Medicine 10/26/16 documented as of this encounter"
--- OUTSIDE RECORDS SUMMARY | 2023-12-29 07:21 | External Medical Summary | Summary of Care ---
Author Name Unknown Organization [facility] Address [address] [facility] [address] Phone [phone] Care Team Providers Care Social Media Community Manager Name Role Phone Roxana ELMORE MD, Dani Kramer Primary Care Provider [phone] Reason for Visit * Reason Comments Outpatient Testing Encounter Details Date Type Department Care Team (Late st Contact Info) Description 08/25/2023 12:00 PM EST Laboratory [facility] [place] [address] [place] [phone] [place] [address] [place] [address] [employer] Other*[id number]; Screening for cardiovascular condition; Screening for diabetes mellitus; Other complicated headache syndrome Allergies Active Allergy Reactions Criticality Noted Date Comments Meperidine And Related 07/16/2000 Very fast heart beat documented as of this encounter (statuses as of 08/25/2023) Medications Medication Sig Dispensed Refills Start Date End Date Status ALEVE 220 MG PO CAPS 1 tab every 12 hours as needed 0 Active acetaminophen (TYLENOL EXTRA STRENGTH) 500 MG Tablet Take 1 Tablet by mouth every 6 hours as needed for Pain. 0 Active zoster vac recomb adjuvanted (SHINGRIX) 50 MCG/0.5ML injectionIndications:E ncounter for Zostavax administration Inject 0.5 mL into a large muscle now and repeat dose in 60 to 180 days 1 Each 1 11/23/2018 Active Additional Information Patient not taking.Reported on 08/25/2023 Magnesium 400 MG Capsule Take 1 Capsule by mouth in the morning. 0 Active Riboflavin (VITAMIN B-2) 50 MG TABS Take by mouth. 0 Activ e Vitamin D3 1.25 MG (25046 UT) Oral Capsule Take 1 Capsule by mouth in the morning. 0 Active documented as of this encounter (statuses as of 08/25/2023) Active Problems Problem Noted Date Diagnosed Date HX-SKIN MALIGNANCY NEC - BCC inframammary 08/100905/30/2010 ADVANCE DIRECTIVE INFORMATION 10/07/2006 Overview: No, Advance Directive brochure given to patient at prior appointment. documented as of this encounter (statuses as of 08/25/2023) Resolved Problems Problem Noted Date Diagnosed Date Resolved Date Localized adiposity 10/29/2009 07/20/19 Adjustment disorder with depressed mood 01/20/2008 2018 Benign neoplasm of colon 12/13/2007 Overview: adenomatous/repeat colonoscopy in 5 yrs documented as of this encounter (statuses as of 08/25/2023) Immunizations Name Administration Dates Next Due H1N1 [...] pur e alcohol) PHQ-2 Answer Date Recorded PHQ-2 Score 0 11/23/2018 Sex and Gender Information Value Date Recorded Sex Assigned at Female 11/23/2018 2:05 PM EDT Gender Identity Not on file Sexual Orientation Not on file Job Start Date Occupation Industry Not on file Not on file Not on file documented as of this encounter Plan of Treatment Upcoming Encounters Date Type Department Care Team (Late st Contact Info) Description 08/25/2023 12:30 PM EST Imaging Radiology [facility] [address] [place] [address] DDD (degenerative disc disease), cervical 08/26/2023 10:40 AM EST Office Visit Neurology [facility] [address] [place] [address] Radha Mcneil MD [address] [place] [address] 09/30/2023 9:45 AM EDT Imaging Radiology [address] [facility] [place] [address] Pending Results Name Type Priority Associated Diagnoses Date /Time MYCODE INITIAL ADULT Lab Routine [employer] Other*[id number] 08/25/2023 12:02 PM EST LIPID PANEL WITH DIRECT LDL IF TG IS HIGH Lab Routine Screening for cardiovascular condition 08/25/2023 12:02 PM EST HEMOGLOBIN A1C Lab Routine Screening for diabetes mellitus 08/25/2023 12:02 PM EST COMPREHENSIVE METABOLIC PANEL Lab Routine Other complicated headache syndrome 08/25/2023 12:02 PM EST ERYTHROCYTE SEDIMENTATION RATE (ESR) Lab Routine Other complicated headache syndrome 08/25/2023 12:02 PM EST TSH WITH FREE T4 IF INDICATED Lab Routine Other complicated headache syndrome 08/25/2023 12:02 PM EST MYCODE INITIAL ADULT-PINK Lab Routine [employer] Other*[id number] 08/25/2023 12:02 PM EST MYCODE SST1 Lab Routine [employer] Other*[id number] 08/25/2023 12:02 PM EST MYCODE SST2 Lab Routine [employer] Other*[id number] 08/25/2023 12:02 PM EST Health Maintenance Due Date Last Done Comments COVID-19 Vaccine (#1) 01/17/1951 Hepatitis C Screening 1968 Zoster Vaccines (1 of 2) 2002 Influenza Vaccine (FLU shot) (#1) 2023 03/24/2019, 05/04/2018, 08/06/2017, Additional history exists COLONOSCOPY-EVERY 5 YRS AGES 18-100 04/28/2023 04/28/2018, 04/28/2018, 01/30/2013, Additional history exists Lipid Panel 2023 2018, 11/11, 07/19/2000 Mammogram 09/29/2023 09/28/2022, 09/09, 05/19/2018, Additional history exists DXA Scan 08/11/2024 08/11/2017, 12/12/2007 Depression Screening 08/25/2024 08/25/2023 DTaP,Tdap,and Td Vaccines (2 - Td or Tdap) 08/06/2027 08/06/2017, 12/07/2001, 08/19/1981 Pneumococcal Vaccine: 65+ Years Completed 08/25/2023, 11/23/2018 [...] Not on filedocumented as of this encounter Procedures Procedure Name Priority Date/Time Associated Diagnosis Comments DIFFERENTIAL, AUTOMATED Routine 08/25/2023 12:02 PM EST Other complicated headache syndrome CBC Routine 08/25/2023 12:02 PM EST Other complicated headache syndrome CBC Routine 08/25/2023 12:02 PM EST Other complicated headache syndrome documented in this encounter Results * (ABNORMAL) DIFFERENTIAL, AUTOMATED (08/25/2023 12:02 PM EST) WBC 5.71 4.00 - 10.80 K/uL 08/25/2023 12:13 PM EST [facility]-02 Neutrophils % 55.4 40.0 - 75.0 % 08/25/2023 12:13 PM EST [facility]-02 Lymphocytes % 29.9 18.0 - 42.0 % 08/25/2023 12:13 PM EST [facility] 56-02 Monocytes % 12.6(H) 1.0 - 11.0 % 08/25/2023 12:13 PM EST [facility] 56- Eosinophils % 1.6 0.0 - 6.0 % 08/25/2023 12:13 PM EST [facility] 56- Basophils % 0.5 0.0 - 2.0 % 08/25/2023 12:13 PM EST [facility] 56- Absolute Neutrophils 3.16 1.80 - 7.70 K/uL 08/25/2023 12:13 PM EST [facility] 56- Absolute Lymphocytes 1.71 1.00 - 4.80 K/ul 08/25/2023 12:13 PM EST [facility] 56- Absolute Monocytes 0.72 0.00 - 1.10 K/uL 08/25/2023 12:13 PM EST [facility] 56- Absolute Eosinophils 0.09 0.00 - 0.70 K/uL 08/25/2023 12:13 PM EST [facility] 56- Absolute Basophils 0.03 0.00 - 0.20 K/uL 08/25/2023 12:13 PM [facility] 56 Blood Venous blood specimen / Unknown Venipuncture / Unknown 08/25/2023 12:02 PM EST 08/25/2023 12:03 PM EST October Dimitri ONTIVEROS LAB BLOOD ORDERABLES [facility] [address] [place], [place] [id number] * CBC (08/25/2023 12:02 PM EST) WBC 5.71 4.00 - 10.80 K/uL 08/25/2023 12:13 PM EST [facility] 56- RBC 4.31 3.85 - 5.15 M/uL 08/25/2023 12:13 PM [facility] 56 HGB 13.2 12.0 - 15.3 g/dL 08/25/2023 12:13 PM [facility] 56 HCT 41.2 36.0 - 45.2 % 08/25/2023 12:13 PM [facility] 56- MCV 95.6 81.5 - 97.5 fL 08/25/2023 12:13 PM [facility] 56 MCH 30.6 27.0 - 34.0 pg 08/25/2023 12:13 PM [facility] 56 MCHC 32.0 32.0 - 36.0 g/dL 08/25/2023 12:13 PM [facility] 56 RDW 13.4 11.5 - 15.5 % 08/25/2023 12:13 PM [facility] 56 PLT 261 140 - 400 K/uL 08/25/2023 12:13 PM [facility] 56 MPV 9.4 6.6 - 11.1 fL 08/25/2023 12:13 PM [facility] 56 Blood Venous blood specimen / Unknown Venipuncture / Unknown 08/25/2023 12:02 PM EST 08/25/2023 12:03 PM EST Enid Mosley PA-C LAB BLOOD ORDERABLES [facility]- [address] [facility] [address] documented in this encounter Visit Diagnoses Diagnosis DDD (degenerative disc disease), cervical Degeneration of cervical intervertebral disc [facility] Other*[id number] Screening for cardiovascular condition Screening for other and unspecified cardiovascular conditions Screening for diabetes mellitus Other complicated headache syndrome documented in this encounter Care Teams Social Media Community Manager Relationship Specialty Start Date End Date Dani Schmidt III, MD [address] [facility] [address] PCP - General Family Medicine 10/26/16 documented as of this encounter
--- OUTSIDE RECORDS SUMMARY | 2023-12-29 07:21 | External Medical Summary ---
Author Name Unknown Address Unknown Organization [id number]:[facility] [address] Laboratory Report Ordering Provider Test Date Status 08/25/2023 12:02:14 Final Observation Date Value Abnormality Reference (Units ) Status SYNC LEUKOCYTES IN BLOOD BY AUTOMATED COUNT 08/25/2023 12:02:14 5.71 4.00-10.80 (K/uL) Final Segs 08/25/2023 12:02:14 55.4 40.0-75.0 (%) Final Lymphs % 08/25/2023 12:02:14 29.9 18.0-42.0 (%) Final Monos 08/25/2023 12:02:14 12.6 Above high normal 1.0-11.0 (%) Final Eosinophils 08/25/2023 12:02:14 1.6 0.0-6.0 (%) Final Basos 08/25/2023 12:02:14 0.5 0.0-2.0 (%) Final Absolute Segs 08/25/2023 12:02:14 3.16 1.80-7.70 (K/uL) Final Lymphs, absolute 08/25/2023 12:02:14 1.71 1.00-4.80 (K/ul) Final Monos, Abs 08/25/2023 12:02:14 0.72 0.00-1.10 (K/uL) Final Eos, Abs 08/25/2023 12:02:14 0.09 0.00-0.70 (K/uL) Final Basos, Abs 08/25/2023 12:02:14 0.03 0.00-0.20 (K/uL) Final Performing Location [facility] [address]
--- OUTSIDE RECORDS SUMMARY | 2023-12-29 07:21 | External Medical Summary ---
Author Name Unknown Address Unknown Organization [id number]:[facility] [place] [address] [facility] [address] Laboratory Report Ordering Provider Test Date Status 08/25/2023 12:02:14 Final Observation Date Value Abnormality Reference (Units ) Status Triglyceride 08/25/2023 12:02:14 81 <=174 ( mg/dL) Final Triglyceride Reference Range s (mg/dL):
<150 Acceptable
150-174 Borderline high
175-499 High
>=500 Very high Cholesterol 08/25/2023 12:02:14 229 Above high normal <200 (mg/dL) Final Total Cholesterol Reference Ranges (mg/dL):
<200 Desirable
200-239 Borderline high
>=240 High HDL 08/25/2023 12:02:14 95 >49 (mg/dL ) Final HDL Cholesterol Reference Ra nges (mg/dL):
>=60 High (Desirable)
<50 Low (Undesirable) For Females
<40 Low (Undesirable) For Males NON-HDL CHOLESTEROL 08/25/2023 12:02:14 134 <=159 (mg/dL) Final Non-HDL Cholesterol Referenc e Range (mg/dL):
<100 Target level for high risk ASCVD patient
<130 Optimal for general population
130-159 Near optimal for general population
160-189 Borderline High
190-219 High
>=220 Very High LDL, (calculated) 08/25/2023 12:02:14 118 <= 129 (mg/dL) Final LDL Cholesterol Reference Ra nges (mg/dL):
<70 Target level for high risk ASCVD patient
<100 Optimal for general population
100-129 Near optimal for general population
130-159 Borderline high
160-189 High
>=190 Very high Performing Location [facility] [place] [address] [facility] [address]
--- OUTSIDE RECORDS SUMMARY | 2023-12-29 07:21 | External Medical Summary ---
Author Name Unknown Address Unknown Organization [id number]:[facility] [place] [address] [place] [address] Laboratory Report Ordering Provider Test Date Status 08/25/2023 12:02:14 Final Observation Date Value Abnormality Reference (Units ) Status TSH 08/25/2023 12:02:14 2.38 0.27-4.20 (uIU/mL) Final Performing Location [facility] [place] [address] [place] [address]
--- OUTSIDE RECORDS SUMMARY | 2023-12-29 07:21 | External Medical Summary ---
Author Name Unknown Address Unknown Organization [id number]:[facility] [place] [address] [place] [address] Laboratory Report Ordering Provider Test Date Status REY CARDOSO 08/25/2023 12:02:14 Final Observation Date Value Abnormality Reference (Units ) Status MYCODE SPECIMEN-SST 08/25/2023 12:02:14 Freezing of extracted DNA, whole blood and/or serum. Final Performing Location [facility] - [address] [place] [address]
--- OUTSIDE RECORDS SUMMARY | 2023-12-29 07:21 | External Medical Summary | Summary of Care ---
Author Name Unknown Organization [facility] Address [address] [place] [address] Phone [phone] Care Team Providers Care Orientation & Mobility Specialist Name Role Phone Roxana ELMORE MD, Dani Kramer Primary Care Provider [phone] Reason for Referral * Evaluate & Treat - Unlimited Visits (Within 30 days (routine)) - Pending Review Specialty Diagnoses / Procedures Referred By Андрей singleton Referred To Contact Neurology Diagnoses Atypical cluster headache Enid oMsley PA-C [address] [place] [address] Referral ID Status Reason Start Date Expiration Date Visits Requested Visits Authorized [id number] Pending Review Specialty Services Required 08/25/[phone] Question Answer Referral Priority Within 30 days (routine) Where should this appointment be scheduled? [facility] REFERRAL QUESTIONS Other Conditions * Ancillary Services (Within 10 days (routine)) - Pending Review Specialty Diagnoses / Procedures Referred By Андрей singleton Referred To Contact Gastroenterology Diagnoses Encounter for screening colonoscopy Enid Mosley PA-C [address] [place] [address] Referral ID Status Reason Start Date Expiration Date Visits Requested Visits Authorized [id number] Pending Review Ancillary Services Required 08/25/[phone] Question Answer Referral Priority Within 10 days (routine) Where should this appointment be scheduled? [facility] Comments ALERT: Do not order for pediatric patients (18 years or younger). Cancel off screen and order PEDS GASTROENTEROLOGY CONSULT (Type: 1 visit only-Evaluate and Treat) The following Pt. Instructions are available: - Gastro Colonoscopy Prep Instructions [79030] - Gastro Colonoscopy Prep Instructions (Khmer Version) [[id number]] Go to the Pt. Instructions section within the Visit Navigator to access. Colonoscopy ASGE Guidelines: Average risk screening (begin at age 50, 10 year intervals) ADDITIONAL INFORMATION 1. Is the patient on Coumadin? No 2. Is the patient on Pradaxa? No Reason for Visit * Reason Comments Physical-Exam Encounter Details Date Type Department Care Team (Latest Contact Info) Description 08/25/2023 10:20 AM EST Office Visit [facility] [place] [address] [place] [address] Enid Mosley PA-C [address] [facility] [place] [address] Well adult exam*; Encounter for screening colonoscopy; Tinnitus, unspecified laterality; Other complicated headache syndrome; Screening for cardiovascular condition; Screening for diabetes mellitus; DDD (degenerative disc disease), cervical; Atypical cluster headache; Need for pneumococcal vaccination Allergies Active Allergy Reactions Criticality Noted Date [...] 0 Activ e Vitamin D3 1.25 MG (01756 UT) Oral Capsule Take 1 Capsule by mouth in the morning. 0 Active documented as of this encounter (statuses as of 08/25/2023) Active Problems Problem Noted Date Diagnosed Date HX-SKIN MALIGNANCY NEC - BCC inframammary 08/1009 [...] Sign Reading Time Taken Comments Blood Pressure 122/80 08/25/2023 10:42 AM EST Pulse 76 08/25/2023 10:42 AM EST Temperature 36.5 C (97.7 F) 08/25/2023 10:[address] Respiratory Rate 16 08/25/2023 10:42 AM EST Oxygen Saturation 96% 08/25/2023 10:42 AM EST Inhaled Oxygen Concentration - - Weight 72.1 kg (159 lb) 08/25/2023 10:42 AM EST Height 162.6 cm (5' 4") 08/25/2023 10:42 AM EST Body Mass Index 27.29 08/25/2023 10:42 AM EST documented in this encounter Progress Notes * Dimitri Enid [place] - 08/25/2023 11:17 AM EST Berkley Hernandze is a 73 year old female who presents for an annual check-up. Current concerns: Headaches; has had for 15 years. Feels like it is her scalp. Xray of neck shows DDD,MRI essentiallynormal. Some nonspecific in right sphenoid sinus. Variable intensity. Donesn't think getting worse.Has tried tylenol, advil and vitamin therapy. Doesn't want to try prophylatic medication. Has been getting worse over the last 5 years. Also notes some tinnitus. Denies problems with vision photosensitivity or phono sensitivity also denies nausea. Denies chest pain, sob, palpitations, edema, dizzy Appetite good Sleep good Urinaton/ bowel movements good Past Medical History: Diagnosis Date Benign neoplasm [...] performed by Waldemar Phillips MD at ENDOSCOPY [facility] COLONOSCOPY, DIAGNOSTIC (RECTUM) 04/28/2018 COLONOSCOPY FLEXIBLE PROXIMAL DIAGNOSTIC performed by Waldemar Phillips MD at ENDOSCOPY [facility] EX OF EXCES SKIN,ABDOM 09/05/2010 EXCISION,EXCESSIVE SKIN AND SUBCUTANEOUS TISSUE INCLUDING LIPECTOMY ABDOMEN ABDOMINOPLASTY performed by ALAN BECK at [facility] EXCISION EXCES SKIN,PANNICULECTOMY,INFRAUMB 09/05/2010 EXCISION EXCESSIVE SKIN AND SUBCUTANEOUS TISSUE INCLUDIING LIPECTOMY ABDOMEN INFRAUMBILICAL PANNICULECTOMY performed by ALAN BECK at [facility] INFORMATION 07/2009 moles removed LIGATE/CUT OVIDUCT(S) 08/15/1982 Tubal Ligation PARTIAL HYSTERECTOMY 1992 cervix present - fibroids, ovaries intact [facility] [place] REMOVE TONSILS & ADENOIDS, AGE 12+ US GUIDED BREAST BIOPSY RIGHT Right 12/22/2005 benign Current Outpatient Medications Medication Sig Dispense Refill ALEVE 220 MG PO CAPS 1 tab every 12 hours as needed acetaminophen (TYLENOL EXTRA STRENGTH) 500 MG Tablet Take 1 Tablet by mouth every 6 hours as neededfor Pain. Magnesium 400 MG Capsule Take 1 Capsule by mouth in the morning. Riboflavin (VITAMIN B-2) 50 MG TABS Take by mouth. Vitamin D3 1.25 MG (70755 UT) Oral Capsule Take 1 Capsule by mouth in the morning. zoster vac recomb adjuvanted (SHINGRIX) 50 MCG/0.5ML injection Inject 0.5 mL into a large muscle now and repeat dose in 60 to 180 days (Patient not taking: Reported on 08/25/2023) 1 Each 1 No current facility-administered medications for this visit. 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: [employer] Tobacco Use Smoking status: Never [...] on file Housing Stability: Not on file Family History Problem Relation Age of Onset Uterine cancer Mother Heart Disorder Father rheumatic fever COPD Sister Hypertension Sister No Known Problems Grandmother (Maternal) Colon cancer Grandfather (Maternal) dx elderly No Known Problems Grandfather (Paternal) Breast Cancer No significant family history Review Of Systems Skin: negative Eyes: negative Ears/Nose/Throat: negative Respiratory: negative Cardiovascular: negative Gastrointestinal: negative Genitourinary: negative Musculoskeletal: pt denies significant joint pain or stiffness Neurologic: headaches Psychiatric: negative Hematologic/Lymphatic/Immunologic: negative Endocrine: negative Gynecologic:No LMP recorded. Patient has had a hysterectomy., PHYSICAL EXAMINATION: BP 122/80 | Pulse 76 | Temp 36.5 C (97.7 F) (Tympanic) | Resp 16 | Ht 1.626 m (5' 4") | Wt 72.1kg (159 lb) | SpO2 96% | BMI 27.29 kg/m | BSA 1.8 m General appearance - well nourished, comfortable. Skin - no rashes or lesions suspicious for malignancy. Head - without deformity, mass, or tenderness. Eyes - conjuctiva clear, EOMI, nondilated limited fundoscopic exam without obvious pathology. Ears - canals clear, TMs normal. Nose/Sinuses - normal mucosa without mass. Oropharynx -no oral lesions. Neck - normal ROM, supple, without adenopathy, thyromegaly, or bruit. Back - without deformity or tenderness. Lungs - symmetric and full breath sounds without rales, rhonchi, or wheezes. Heart - normal precordial impulse, PMI nondisplaced, normal S1,S2, without murmurs, rubs, or gallops. carotid upstrokes 2/4 without bruit. Breasts - symmetric, no masses or tenderness, axillae negative. Abdomen - nondistended, no organomegaly, nontender to palpation,bowel sounds active. Extremities - no cyanosis, clubbing, or edema. Musculoskeletal - joints without restriction in range of motion or deformity. Peripheral pulses - symmetric and intact. Neuro - normal gait and station, without tremor, symmetric motor strength, DTRs symmetric. Pelvic-deferred ASSESSMENT/PLAN: (Z00.00) Well adult exam (primary encounter diagnosis) Plan: (Z12.11) Encounter for screening colonoscopy Plan: COLONOSCOPY, GI REFERRAL OP (H93.19) Tinnitus, unspecified laterality Plan: (G44.59) Other complicated headache syndrome Plan: CBC WITH WBC DIFFERENTIAL, COMPREHENSIVE METABOLIC PANEL, ERYTHROCYTE SEDIMENTATION RATE (ESR), TSH WITH FREE T4 IF INDICATED (Z13.6) Screening for cardiovascular condition Plan: LIPID PANEL WITH DIRECT LDL IF TG IS HIGH (Z13.1) Screening for diabetes mellitus Plan: HEMOGLOBIN A1C Diet and exercise discussed. Continue current medications. documented in this encounter Nursing Notes * Jeannine Mckeon LPN - 08/25/2023 11:49 AM EST Pre-Administration Time Out Procedure Performed: Yes Patient Identified (Ask Name/Date of ): Yes Does the patient have a fever greater than 101 degrees today? No Patient allergic to latex? No Has the patient ever fainted after receiving an injection? No VFC Stock: No Immunization(s) verified: Yes, Immunization Name: Pneumovax (Pneumococcal Adult), VIS Sheet(s) given: Yes Verified Side and Site: Yes Verified Shot(s) with Parent(s)/Patient: Yes * Jeannine Mckeon LPN - 08/25/2023 10:33 AM EST Patient presents today for a physical. She said that she has headaches everyday. She said that it isn't necessarily a headache it is like her scalp hurting and she has ringing in her ears as well. documented in this encounter Plan of Treatment Upcoming Encounters Date Type Department Care Team (Late st Contact Info) Description 08/26/2023 10:40 AM EST Office Visit Neurology [facility] [place] [address] [facility] [place] [address] Radha Mcneil MD [address] [place] [address] 09/30/2023 9:45 AM EDT Imaging Radiology [facility], [address] [place] [address] Pending Results Name Type Priority Associated Diagnoses Date /Time LIPID PANEL WITH DIRECT LDL IF TG IS HIGH Lab Routine Screening for cardiovascular condition 08/25/2023 12:02 PM EST HEMOGLOBIN A1C Lab Routine Screening for diabetes mellitus 08/25/2023 12:02 PM EST ERYTHROCYTE SEDIMENTATION RATE (ESR) Lab Routine Other complicated headache syndrome 08/25/2023 12:02 PM EST TSH WITH FREE T4 IF INDICATED Lab Routine Other complicated headache syndrome 08/25/2023 12:02 PM EST XR C SPINE 4-5 VIEWS Medical Imaging Routine DDD (degenerative disc disease), cervical 08/25/2023 12:07 PM EST Scheduled Orders Name Type Priority Associated Diagnoses Orde r Schedule LIPID PANEL WITH DIRECT LDL IF TG IS HIGH Lab Routine Screening for cardiovascular condition Expected: 08/25/2023, Expires: 08/25/2024 HEMOGLOBIN A1C Lab Routine Screening for diabetes mellitus Expected: 08/25/2023 (Approximate), Expires: 08/24/2024 ERYTHROCYTE SEDIMENTATION RATE (ESR) Lab Routine Other complicated headache syndrome Expected: 08/25/2023 (Approximate), Expires: 08/24/2024 TSH WITH FREE T4 IF INDICATED Lab Routine Other complicated headache syndrome Expected: 08/25/2023 (Approximate), Expires: 08/24/2024 XR C SPINE 4-5 VIEWS Medical Imaging Routine DDD (degenerative disc disease), cervical Expected: 08/25/2023, Expires: 09/22/2024 Scheduled Referrals Name Type Priority Associated Diagnoses Orde r Schedule COLONOSCOPY, GI REFERRAL OP Referral Within 10 days (routine) Encounter for screening colonoscopy Ordered: 08/25/2023 NEUROLOGY REFERRAL OP Referral Within 30 days (routine) Atypical cluster headache Ordered: 08/25/2023 Health Maintenance Due Date Last Done Comments [...] filedocumented as of this encounter Results * COMPREHENSIVE METABOLIC PANEL (08/25/2023 12:02 PM EST) BUN 16 6 - 20 mg/dL 08/25/2023 1:10 PM [facility] [employer] [place] Creatinine 0.8 0.5 - 1.0 mg/dL 08/25/2023 1:10 PM [facility] [employer] [place] [facility] Estimated Glomerular Filtration Rate 78 >=60 mL/min 08/25/2023 1:10 PM [facility] [employer] [place] [facility] Comment:eGFR is calculated b ased on the CKD-EPI 2020 equation Sodium 142 135 - 146 mmol/L 08/25/2023 1:10 PM EST [facility] 56-02 Potassium 4.3 3.5 - 5.1 mmol/L 08/25/2023 1:10 PM EST [facility] 56-02 Chloride 103 98 - 107 mmol/L 08/25/2023 1:10 PM EST [employer] [place] [facility] CO2 29 22 - 32 mmol/L 08/25/2023 1:10 PM [facility] 56-02 Anion Gap 10 7 - 15 mmol/L 08/25/2023 1:10 PM [facility] 56-02 Glucose 98 70 - 120 mg/dL 08/25/2023 1:10 PM [facility] 56-02 Albumin 4.7 3.8 - 5.0 g/dL 08/25/2023 1:10 PM [facility] 56-02 AST 22 10 - 35 U/L 08/25/2023 1:10 PM [facility] 56-02 Alkaline Phosphatase 80 35 - 130 U/L 08/25/2023 1:10 PM [facility] 56-02 Bilirubin, Total 0.3 <=1.2 mg/dL 08/25/2023 1:10 PM [facility] 56-02 Calcium 9.9 8.4 - 10.2 mg/dL 08/25/2023 1:10 PM [facility] 56-02 Protein 7.6 6.0 - 8.3 g/dL 08/25/2023 1:10 PM [facility] 56- ALT 17 10 - 35 U/L 08/25/2023 1:10 PM [facility] 56-02 Blood Venous blood specimen / Unknown Venipuncture / Unknown 08/25/2023 12:02 PM EST 08/25/2023 12:03 PM EST October Dimitri ONTIVEROS LAB BLOOD ORDERABLES [facility] [address] [place] [address] documented in this encounter Visit Diagnoses Diagnosis Well adult exam- Primary Routine general medical examination at a health care facility Encounter for screening colonoscopy Special screening for malignant neoplasms, colon Tinnitus, unspecified laterality Other complicated headache syndrome Screening for cardiovascular condition Screening for other and unspecified cardiovascular conditions Screening for diabetes mellitus DDD (degenerative disc disease), cervical Degeneration of cervical intervertebral disc Atypical cluster headache Cluster headache syndrome, unspecified Need for pneumococcal vaccination Need for prophylactic vaccination against streptococcus pneumoniae (pneumococcus) documented in this encounter Care Teams Orientation & Mobility Specialist Relationship Specialty Start Date End Date Dani Schmidt III, MD [address] [facility] [address] PCP - General Family Medicine 10/26/16 documented as of this encounter
--- OUTSIDE RECORDS SUMMARY | 2023-12-29 07:21 | External Medical Summary ---
Author Name Unknown Address Unknown Organization [id number]:LABORATORY [facility] - [address] [place] [address] Laboratory Report Ordering Provider Test Date Status REY CARDOSO 08/25/2023 12:02:14 Final Observation Date Value Abnormality Reference (Units ) Status MYCODE SPECIMEN-SST 08/25/2023 12:02:14 Freezing of extracted DNA, whole blood and/or serum. Final Performing Location LABORATORY C - [address] [place] [address]
--- OUTSIDE RECORDS SUMMARY | 2023-12-29 07:21 | External Medical Summary ---
Author Name Unknown Address Unknown Organization K09:[facility]ORY [place] [address] Laboratory Report Ordering Provider Test Date Status 08/25/2023 12:02:14 Final Observation Date Value Abnormality Reference (Units ) Status WBC, Total 08/25/2023 12:02:14 5.71 4.00-10.8 0 (K/uL) Final RBC 08/25/2023 12:02:14 4.31 3.85-5.15 (M/uL) Final Hemoglobin 08/25/2023 12:02:14 13.2 12.0-15.3 (g/dL) Final HCT 08/25/2023 12:02:14 41.2 36.0-45.2 (%) Final MCV 08/25/2023 12:02:14 95.6 81.5-97.5 (fL) Final MCH 08/25/2023 12:02:14 30.6 27.0-34.0 (pg) Final MCHC 08/25/2023 12:02:14 32.0 32.0-36.0 (g/dL) Final RDW 08/25/2023 12:02:14 13.4 11.5-15.5 (%) Final Platelets 08/25/2023 12:02:14 261 140-400 (K /uL) Final MPV 08/25/2023 12:02:14 9.4 6.6-11.1 ( fL) Final Performing Location [facility] [place] [address]
--- OUTSIDE RECORDS SUMMARY | 2023-12-29 07:21 | External Medical Summary ---
Author Name Unknown Address Unknown Organization [id number]:LABORATORY [facility] [place] - [address] [place] [address] Laboratory Report Ordering Provider Test Date Status RAMONE BELCHER 08/25/2023 12:02:14 Final Observation Date Value Abnormality Reference (Units ) Status Nuclear IgG Ab [Ratio] in Serum by Immunoassay 08/25/2023 12:02:14 Negative Negative Final DNA double strand Ab [Presence] in Serum 08/25/2023 12:02:14 Negative Negative Final DOUBLE STRANDED DNA VALUE - [facility] 08/25/2023 12:02:14 <0.6 <20 (IU/mL) Final Extractable nuclear Ab [Presence] in Serum 08/25/2023 12:02:14 Negative Negative Final Nuclear IgG Ab [Ratio] in Serum by Immunoassay 08/25/2023 12:02:14 0.2 <0.7 (Ratio) Final Performing Location LABORATORY [facility] - [address] [place] [address]
--- OUTSIDE RECORDS SUMMARY | 2023-12-29 07:21 | External Medical Summary ---
Author Name Unknown Address Unknown Organization [id number]:LABORATORY [facility] [place] - [address] [place] [address] Laboratory Report Ordering Provider Test Date Status REY CARDOSO 08/25/2023 12:02:14 Final Observation Date Value Abnormality Reference (Units ) Status MYCODE SPECIMEN-LAV 08/25/2023 12:02:14 Freezing of extracted DNA, whole blood and/or serum. Final Performing Location LABORATORY C - [address] [place] [address]
--- OUTSIDE RECORDS SUMMARY | 2023-12-29 07:21 | External Medical Summary | Summary of Care ---
Author Name Unknown Organization [facility] Address [address] [place] [address] Phone [phone] Care Team Providers Care Process Manufacturing Engineer Name Role Phone Roxana ELMORE MD, Dani Kramer Primary Care Provider [phone] Encounter Details Date Type Department Care Team (Late st Contact Info) Description 08/30/2023 Orders Only Outcomes Research Department [address] [place], [place] [id number] Trisha Araujo CHRA [employer] Other*[id number] Allergies Active Allergy Reactions Criticality Noted Date [...] 0 Activ e Vitamin D3 1.25 MG (49121 UT) Oral Capsule Take 1 Capsule by [...] Description 09/30/2023 9:45 AM EDT Imaging Radiology [address] [facility] [place] [address] 11/25/2023 10:40 AM EDT Office Visit Neurology [facility] [place] [address] [facility] [place] [address] Radha Mcneil MD 200 [facility] [place] [address] Scheduled Orders Name Type Priority Associated Diagnoses Orde r Schedule MYCODE SUBSEQUENT ADULT Lab Routine [employer] Other*[id number] Every 6 Months for 2 Occurrences starting 08/30/2023 until 09/18/2024 Health Maintenance Due Date Last Done Comments Hepatitis C Screening 1968 Zoster Vaccines (1 of 2) 2002 COVID-19 Vaccine ( - 2022-24 season) 2023 Influenza Vaccine (FLU shot) (#1) [...] as of this encounter Visit Diagnoses Diagnosis [employer] Other*[id number] documented in this encounter Care Teams Process Manufacturing Engineer Relationship Specialty Start Date End Date Dani Schmidt III, MD [address] [place] [address] PCP - General Family Medicine 10/26/16 documented as of this encounter
--- OUTSIDE RECORDS SUMMARY | 2023-12-29 07:21 | External Medical Summary ---
Author Name Unknown Address Unknown Organization K01:LABORATORY [facility] [place] - [address] [place] [address] Laboratory Report Ordering Provider Test Date Status ERICA BELCHERERWIN 08/25/2023 12:02:14 Final Observation Date Value Abnormality Reference (Units ) Status Borrelia burgdorferi IgG and IgM [Interpretation] in Serum by Immunoassay 08/25/2023 12:02:14 Negative Negative Final Performing Location LABOR[facility]ORY [facility] - [address] [place] [address]
--- OUTSIDE RECORDS SUMMARY | 2023-12-29 07:21 | External Medical Summary ---
Author Name Unknown Address Unknown Organization K09:LABORATORY [facility] - [address] [place] [address] Laboratory Report Ordering Provider Test Date Status 08/25/2023 12:02:14 Final Observation Date Value Abnormality Reference (Units ) Status BUN 08/25/2023 12:02:14 16 6-20 (mg/dL) Final Creatinine 08/25/2023 12:02:14 0.8 0.5-1.0 (mg/dL) Final Glomerular filtration rate/1.73 sq M.predicted [Volume Rate/Area] in Serum, Plasma or Blood by Creatinine-based formula (CKD-EPI) 08/25/2023 12:02:14 78 >=60 (mL/min) Final eGFR is calculated based on the CKD-EPI 2020 equation SODIUM 08/25/2023 12:02:14 142 135-146 (m mol/L) Final Potassium 08/25/2023 12:02:14 4.3 3.5-5.1 (m mol/L) Final Cl 08/25/2023 12:02:14 103 98-107 (mm ol/L) Final CO2 08/25/2023 12:02:14 29 22-32 (mmo l/L) Final Anion gap 08/25/2023 12:02:14 10 7-15 (mmol /L) Final Glucose 08/25/2023 12:02:14 98 70-120 (mg /dL) Final Albumin 08/25/2023 12:02:14 4.7 3.8-5.0 (g /dL) Final AST (Aspartate aminotransferase) 08/25/2023 12:02:14 22 10-35 (U/L) Final Alk Phos 08/25/2023 12:02:14 80 35-130 (U/ L) Final Bilirubin, Total 08/25/2023 12:02:14 0.3 <=1 .2 (mg/dL) Final Calcium 08/25/2023 12:02:14 9.9 8.4-10.2 ( mg/dL) Final Protein 08/25/2023 12:02:14 7.6 6.0-8.3 (g /dL) Final ALT (Alanine aminotransferase) 08/25/2023 12:02:14 17 10-35 (U/L) Final Performing Location LABORATORY [facility] [address] [place] [address]
--- OUTSIDE RECORDS SUMMARY | 2023-12-29 07:21 | External Medical Summary | Summary of Care ---
Author Name Unknown Organization [facility] [address] [facility] [place] [address] Phone [phone] Care Team Providers Care Hydro Plant Operator Name Role Phone Roxana ELMORE MD, Dani Kramer Primary Care Provider [phone] Reason for Visit * Reason Onset Date Comments Test Results Lab 08/30/2023 Encounter Details Date Type Department Care Team (Late st Contact Info) Description 08/30/2023 Telephone Neurology [facility] [address] [facility] [place] [address] Radha Mcneil MD [address] [facility] [place] [address] Test Results Lab Allergies Active Allergy Reactions [...] 0 Activ e Vitamin D3 1.25 MG (59208 UT) Oral Capsule Take 1 Capsule by [...] Lauren LPN - 08/30/2023 1:40 PM EST [employer] message sent. * Telephone Encounter - Radha Mcneil MD - 08/30/2023 1:34 PM EST BW nl; how is it going with lamotrigine? documented in this encounter Plan of Treatment Upcoming Encounters Date Type Department Care Team (Late st Contact Info) Description 09/30/2023 9:45 AM EDT Imaging Radiology [address] [place] [address] 11/25/2023 10:40 AM EDT Office Visit Neurology [facility] 200 [facility] [place] [address] Radha Mcneil MD [address] [facility] [place] [address] Health Maintenance Due Date Last Done Comments [...] filedocumented as of this encounter Care Teams Hydro Plant Operator Relationship Specialty Start Date End Date Dani Schmidt III, MD [address] [facility] [place] [address] PCP - General Family Medicine 10/26/16 documented as of this encounter
--- OUTSIDE RECORDS SUMMARY | 2023-12-29 07:21 | External Medical Summary ---
Author Name Unknown Address Unknown Organization K01:[facility] [place] - [address] [place] [address] Laboratory Report Ordering Provider Test Date Status 08/25/2023 12:02:14 Final Observation Date Value Abnormality Reference (Units ) Status Erythrocyte sedimentation rate by Photometric method 08/25/2023 12:02:14 16 <30 (mm/hour) Final Performing Location LAB[facility] [place] - [address] [place] [address]
--- OUTSIDE RECORDS SUMMARY | 2023-12-29 07:21 | External Medical Summary ---
Author Name Unknown Address Unknown Organization [id number]:[facility] [place] [address] [place] [id number] Laboratory Report Ordering Provider Test Date Status 08/25/2023 12:02:14 Final Observation Date Value Abnormality Reference (Units ) Status HbA1C 08/25/2023 12:02:14 5.8 Above high normal 4. 0-5.6 (%) Final The use of HbA1c to monitor glycemic status is based on normal hemoglobin and HbA composition. This test should not be used in patients with abnormal hemoglobin that affects the half life of the red blood cell or the in vivo glycation rates. Glucose, estimated average 08/25/2023 12:02:14 120 <126 (mg/dL) Final Performing Location [facility] [place] [address] [facility] [place] [address]
--- NOTE | 2023-12-29 07:34 | XRay Report ---
SINGLE VIEW CHEST CLINICAL HISTORY: Preoperative examination FINDINGS: An AP, portable, upright chest radiograph is obtained. No prior studies are available for c omparison at the time of dictation. The heart is enlarged. The pulmonary vasculature is noncongested. The lungs and pleural spaces are clear. No pneumothorax is seen. The skeletal structures are osteope jackie. The bony thorax is grossly intact. IMPRESSION: Cardiomegaly with no active disease in the chest. ACT 112: Negative or not required by law. Electronically signed by: Ean Ng M.D. 12/29/2023 7:32 AM
--- NOTE | 2023-12-29 07:58 | Surgery Progress Note ---
<Statement entered by Stephanie Cummins, - 12/29/23 17:37> I have seen and examined this patient this a.m. with the surgical PA. I agree with this plan. Patient is ready for discharge home. Date of Service December 29, 2023 Assessment & Plan (1) Appendicitis: Plan: POD#1 laparoscopic appendectomy WBC 14(14), Hbg 11.9 (12). Vitals stable, and pt afebrile Pain controlled, not requiring any medications Abdomen soft, incisions c/d/i with skin glue and no signs of infection Will adv diet slowly Possible dispo to home today as she is doing well F/u in the office with Dr. Cummins in 2 weeks, dispo instructions reviewed Admission and Anticipated Discharge Date Admission Date: December 28, 2023 Subjective Patient report feeling very well. Abdominal discomfort is minimal and much improved from her admitting symptoms. No nausea/vomiting. No flatus/BM since OR. Physical Exam Physical Exam: awake/alert, no distress Respiratory: normal respiratory effort Gastrointestinal (Abdomen): Inspection/Auscultation: + abdominal surgical incision (c/d/i with skin glue, no signs of infection); abdomen not distended Percussion/Palpation: abdomen soft; abdomen nontender Results & Data Vital Signs (Past 12 Hours) Vital Signs Temp Pulse Pulse Resp BP BP Pulse Ox 12/29/23 07:13 98.1 F 71 16 106/65 96 12/29/23 06:05 98.4 F 83 16 112/66 95 12/29/23 02:16 98.2 F 85 12 105/63 93 12/29/23 01:06 98.6 F 83 16 121/72 94 12/29/23 00:00 99.3 F 79 16 121/68 95 12/28/23 23:30 98.1 F 76 16 126/75 95 12/28/23 23:00 99.0 F 77 16 134/78 98 12/28/23 22:20 82 16 131/75 94 12/28/23 22:10 98.6 F 90 16 140/87 95 12/28/23 22:00 93 H 16 152/80 H 97 12/28/23 21:50 95 H 16 139/79 98 12/28/23 21:40 97.2 F L 98 H 16 135/78 99 12/28/23 20:03 99.0 F 88 16 138/84 96 O2 Del Method 12/29/23 07:13 Room Air 12/29/23 06:05 Room Air 12/29/23 02:16 Room Air 12/29/23 01:06 Room Air 12/29/23 00:00 Room Air 12/28/23 23:30 Room Air 12/28/23 23:00 Room Air 12/28/23 22:20 Room Air 12/28/23 22:10 Room Air 12/28/23 22:00 Room Air 12/28/23 21:50 Room Air 12/28/23 21:40 Room Air 12/28/23 20:03 Room Air PG Care Time/CCT Total # of Minutes Spent Total Time Spent with Patient: Total time spent is greater than 50% in coordination of care (as documented) at patient's floor/unit and/or counseling patient: Coding Level of Care Code 49871 Post Operative Follow-Up Diagnoses Appendicitis K35.80 Acute appendicitis type: unspecified acute appendicitis type Appendicitis type: acute appendicitis (1) Appendicitis Acute appendicitis type: unspecified acute appendicitis type Appendicitis type: acute appendicitis Qualified Code(s): K35.80 - Unspecified acute appendicitis
--- NOTE | 2023-12-29 12:24 | Discharge Summary ---
Date of Service December 29, 2023 Admission HPI Per Admitting Provider This is a 73-year-old female who presented to the emergency department secondary to abdominal pain that began approximate 9:00 AM this morning. She notes that the pain is located in the right lower quadrant without radiation or modifying factors. She denies any nausea or vomiting. She did report some occasional chills but has not any fevers. She has had prior abdominal surgery in the form of a tubal ligation, hysterectomy secondary to uterine fibroids, and an abdominoplasty. She notes that her most recent oral intake was at approximately 12:00 PM today when she had pizza and soda. Since arrival to the emergency department she has had labs and imaging which independent reviewed. CBC revealed white blood cell count was elevated 14.5. Hemoglobin and hematocrit as well as the platelet count were normal. Chemistry profile showed sodium and potassium as well as the BUN and creatinine were normal.A CT scan of the abdomen pelvis showed findings concerning for acute appendicitis without evidence of perforation. There is an apparent appendicolith in the distal appendix and the appendix is dilated measuring up to 11 mm. There is some fat stranding surrounding the appendix. At the time my interview she was resting comfortably in bed she was in no distress. Concerning past surgical history this is listed above Concerning past medical history she denies any prior medical problems Concerning social history she does not smoke Principal Diagnosis acute appendectomy Discharge Exam awake/alert, no distress Respiratory normal respiratory effort Gastrointestinal (Abdomen) Inspection/Auscultation: + abdominal surgical incision (c/d/i with skin glue, no signs of infection); abdomen not distended Percussion/Palpation: abdomen soft; abdomen nontender Discharge Data Allergies Allergy/AdvReac Type Severity Reaction Status Date / Time meperidine [From Demerol] AdvReac Intermediate HEART Verified 12/28/23 19:13 RACED, "FELT FUNNY" Consultations 12/28/23 19:27 ED Decision to Admit Stat Procedures Performed Operation Date: 12/28/23 20:30 Actual Procedures p Laparoscopic Appendectomy - Stephanie Cummins DO Ordered Studies 12/28/23 16:27 CT abd pelvis IV con only Stat Hospital Course (1) Appendicitis: This is a 73 yo female who presented to the [facility] ED on 12/28/23 with abdominal pain. Workup in the ED showed a WBC of [address] a/p concerning for acute appendicitis. The patient was tender to palpation in the RLQ. Patient made NPO with IVF and booked for the OR. On 12/28/23 the patient went to the OR with Dr Cummins for a laparoscopic appendectomy. The patient tolerated the procedure well, see operative report for full details. Post operatively the patient's diet was advanced, pain managed on prn meds, and incisions clean/dry/intact. On POD#1 the patient was deemed stable for discharge to home. The patient was given a prescription for oral pain medication and antibiotics. She was given follow up and return precautions. Total Time Total Time Spent Total Time Spent (In Minutes): 10 Discharge Plan Discharge Items Patient Disposition: Home - Self-Care Reason For Visit: APPY Discharge Diagnosis: laparoscopic appendectomy Activity: Per Instructions section Lifting: No more than 25 pounds Bathing Comment: may shower; no soaking in tubs/pools x 2 weeks Exercise/Sports: Wait until after follow-up appointment Driving/Machine Use: no driving if taking any narcotics for pain Non-emergency contact: Surgeon Call non-emergency contact if: you have any medication questions, your symptoms worsen, your pain is worsening, you have a fever, your temperature is above 101.5, your wound has increased redness, your wound has increased drainage and your wound pain has increased Follow-up/Referrals: Dani Schmidt MD [Primary Care Provider] - Stephanie Cummins DO [Physician] - (please call to schedule follow up in clinic within 2 weeks ) Diet: Full liquid Addtl Attending Provider Instructions: You have skin glue over your incisions called dermabond. you may shower with this on. It will tend to dissolve and fall off within a couple weeks. Do not pick at the skin glue You may purchase Tylenol over the counter if needed for additional pain control over the next few days. Take per manufacturers instructions You may ice your incisions on and off alternating every 20 minutes as needed to help with pain and swelling over the next few days, if needed Continue on a full liquid diet until you have a bowel movement. Once you have a bowel movement you may advance to low fiber until you see the surgeon in the office. Complete the full course of antibiotic prescribed to you Pending Studies at Discharge: Yes Studies:: surgical pathology Stand-Alone Forms: [employer], Smoking Cessation Medications and DC Order Prescriptions: New oxycodone 5 mg tablet 5 - 10 mg PO .[id number] PRN (Reason: pain, for initial therapy, max 6 tabs per day) Qty: 12 0RF amoxicillin-pot clavulanate 875-125 mg tablet 1 tab PO BID 3 Days Qty: 6 0RF Continued riboflavin (vitamin B2) [Vitamin B-2] 100 mg Tablet 400 mg PO DAILY zinc gluconate 50 mg Tablet 50 mg PO DAILY magnesium oxide 400 mg magnesium Capsule 400 mg PO DAILY Discharge Orders: Discharge Order (Routine); Ordered 12/29/23 Ordered By: Azucena Funes/Other Patient Handouts: Appendectomy Lap Dc Admission Data Admit Date/Time: 12/28/23 21:54 Attending Provider: Stephanie Cummins Admit Provider: Mike Fishman Primary Care Provider: Dani Schmidt Other Providers: Stephanie Cummins Other Interventions: Discharge Summary Assessment (RN) Last Done: 12/29/23 11:31 Coding Level of Care Code 12918 IN/OBS DISCH 30 MIN/LESS Diagnoses Appendicitis K35.80 Acute appendicitis type: unspecified acute appendicitis type Appendicitis type: acute appendicitis
--- NOTE | 2023-12-29 16:22 | Electrocardiogram Report ---
Test Reason : Blood Pressure : / mmHG Vent. Rate : 088 BPM Atrial Rate : 088 BPM P-R Int : 158 ms QRS Dur : 086 ms QT Int : 366 ms P-R-T Axes : 069 059 035 degrees QTc Int : 442 ms Normal sinus rhythm Possible Left atrial enlargement Low voltage QRS Borderline ECG No previous ECGs available Confirmed by Waldemar Patino ([id number]) on 12/29/2023 4:21:39 PM Referred By: REFERRED SELF Confirmed By:Waldemar Patino
== END 2023-12-29 12:10 | disposition home or self-care (01) | DRG 399 ==
LOC: ED 16:14 → OR 20:05 → INTOOBSV 21:54 → 3N 21:54